=== PATIENT | male | born 1945 | race Caucasian/White ===

== ENCOUNTER 2020-03-28 13:14 | Emergency (ER) | payer MEDICARE, BC ==
[2020-03-28] MEDS ORDERED: Acetaminophen 325 MG Tab PO ONE (13:56)
--- NOTE | 2020-03-28 13:57 | EDM.PDOC ---
ED HPI GENERAL MEDICAL PROBLEM - General Chief Complaint: Respiratory Problem Stated Complaint: [facility] Time Seen by Provider: 03/28/20 13:53 Source of Information: Reports: Patient History Limitations: Reports: No Limitations - History of Present Illness INITIAL COMMENTS - FREE TEXT/NARRATIVE: 74-year-old male presents to the ED due to generally feeling very ill. Patient was diagnosed with COVID-19 illness 3 days ago. He was tested the day prior. He has a paroxysmal dry cough. Headache generalized severe myalgia particularly in his back neck and thighs. He has complete loss of all appetite. He is having on average 3 loose watery stools per day even in spite of not eating. He has absolutely no appetite. His oxygen saturations on room air are 93 to 94% in the ED. he believes his illness started last Monday or 6 days ago February 19. So far his is tested negative. He states he thinks he has had a fever for the last 6 days. He has been taking Motrin sparingly. Onset: Gradual Duration: Day(s):, Constant, Getting Worse Location: Reports: Chest (Paroxysmal), Generalized (Severe generalized myalgia with associated headache), Other (Complete anorexia for any food with persistent diarrhea usually 3 loose watery stools per day.) Quality: Reports: Ache ( nonproductive cough. Diffuse generalized myalgia particularly back neck and thighs.) Severity: Severe (8 out of 10) Improves with: Reports: None Worsens with: Reports: Movement Context: Denies: Activity, Exercise, Lifting, Sick Contact, Trauma, Other Associated Symptoms: Reports: Cough, Fever/Chills, Headaches, Loss of Appetite, Malaise, Nausea/Vomiting, Shortness of Breath, Weakness (Nausea without vomiting), Other ( generalized weakness). Denies: No Other Symptoms, Confusion, Chest Pain, cough w sputum, Diaphoresis, Rash, Seizure, Syncope Treatments MANAGER FIELD INVESTIGATIONS: Reports: Acetaminophen ( diarrhea usually 3 loose watery stools per day), NSAIDS (Motrin.) - Related Data Allergies Allergy/AdvReac Type Severity Reaction Status Date / Time No Known Allergies Allergy Verified 03/28/20 13:23 Home Meds: Home Meds dexAMETHasone [Dexamethasone] 6 mg PO BID #8 tab 03/28/20 [Rx] Past Medical History - Past Health History Medical/Surgical History: Denies Medical/Surgical History - Infectious Disease History Infectious Disease History: Reports: Chicken Pox, Novel Coronavirus Social & Family History - Tobacco Use Smoking Status *Q: Former Smoker Used Tobacco, but Quit: Yes Month/Year Tobacco Last Used: 30 years ago - Caffeine Use Caffeine Use: Reports: None - Recreational Drug Use Recreational Drug Use: No - Living Situation & Occupation Living situation: Reports: Occupation: Retired ED ROS GENERAL - Review of Systems Review Of Systems: See Below Constitutional: Reports: Fever, Chills, Malaise, Weakness, Fatigue, Decreased Appetite HEENT: Reports: Glasses Respiratory: Reports: Shortness of Breath, Cough. Denies: Wheezing, Pleuritic Chest Pain, Sputum, Hemoptysis (Dry cough) Cardiovascular: Reports: Blood Pressure Problem, Dyspnea on Exertion, Lightheadedness. Denies: Chest Pain, Claudication, Edema, Orthopnea, Palpitations Endocrine: Reports: Fatigue (Overwhelming fatigue. All he wants to do his sleep.) GI/Abdominal: Reports: Anorexia (He has not eaten anything for 3 days), Diarrhea, Nausea (Usually 3 loose watery stools per day brownish in color without blood). Denies: Vomiting : Reports: Other (Urine is dark in color.) Musculoskeletal: Reports: Joint Pain (Of his large joints hurt hips knees low back neck thigh muscles.) Skin: Reports: No Symptoms Neurological: Reports: Dizziness (This with standing.), Headache, Difficulty Walking (Weakness and dizziness.), Weakness. Denies: Confusion, Numbness, Syncope, Tingling Psychiatric: Reports: No Symptoms Hematologic/Lymphatic: Reports: No Symptoms Immunologic: Reports: No Symptoms ED EXAM, GENERAL - Physical Exam Exam: See Below Exam Limited By: No Limitations General Appearance: Alert, WD/WN, Mild Distress, Other (Appears ill. Temperature is 38.3 C heart rate 66 respiratory is 26 with O2 sats of 93 to 94% on room air BP 149/61.) Eye Exam: Bilateral Eye: Normal Inspection (No scleral icterus or blepharal pallor.) Ears: Normal TMs Throat/Mouth: Normal Inspection, Normal Oropharynx, Other Head: Atraumatic, Normocephalic (Tongue is coated and dry.) Neck: Normal Inspection, Supple, Full Range of Motion, Tender Lateral (Crepitus on lateral flexion and rotation.). No: Limited Range of Motion Respiratory/Chest: No Accessory Muscle Use, Respiratory Distress, Decreased Breath Sounds, Wheezing (Decreased breath sounds throughout all lung sams c ompatible with COPD pattern.). No: Lungs Clear, Normal Breath Sounds, Chest Non-Tender, Rales ( Occasional expiratory wheeze appreciated.), Rhonchi Cardiovascular: Regular Rate, Rhythm, No Edema, No Gallop, No Murmur (Heart sounds are very difficult to hear due to COPD.), No Rub. No: Normal Peripheral Pulses Peripheral Pulses: 1+: Posterior Tibial (L), Posterior Tibial (R), Dorsalis Pedis (L), Dorsalis Pedis (R), 2+: Carotid (L), Carotid (R) GI/Abdominal: Normal Bowel Sounds, Soft, Non-Tender, No Organomegaly, No Mass, Pelvis Stable, Other (Bowel sounds are active in all 4 quadrants.). No: Distended Back Exam: Normal Inspection, Full Range of Motion. No: CVA Tenderness (L), CVA Tenderness (R) Extremities: Normal Inspection, Normal Range of Motion, Non-Tender, No Pedal Edema, Normal Capillary Refill Neurological: Alert, Oriented, CN II-XII Intact, Normal Cognition Psychiatric: Flat Affect, Other Skin Exam: Warm, Dry, Intact (And appears ill and is very warm to palpation.), Normal Color, No Rash EKG INTERPRETATION EKG Date: 03/28/20 Time: 14:44 Rhythm: NSR Rate (Beats/Min): 69 [place]: RAD-Right [place] Deviation (141 degrees) P-Wave: Present (Borderline first-degree AV block) QRS: Other (Early R wave transition consider right ventricular hypertrophy pattern.) ST-T: Other (There is T wave flattening in V1 which is nonspecific however there is T wave inversion V2 to V6 and aVL cannot rule out anterior septal ischemia.) QT: Normal EKG Interpretation Comments: Abnormal ECG. Course - Vital Signs Last Recorded V/S: Last Vital Signs Temp 37.2 C 03/28/20 16:25 Pulse 66 03/28/20 13:19 Resp 26 H 03/28/20 13:19 BP 149/61 H 03/28/20 13:19 Pulse Ox 87 L 03/28/20 16:25 - Orders/Labs/Meds Orders: Active Orders 24 hr Category Date Time Status Chest 1V Frontal [CR] Stat Exams 03/28/20 13:54 Taken Dextrose 5%-Lactated Ringers 1,000 ml Med 03/28/20 14:00 Active IV ASDIRECTED Medication Orders Dextrose/Lactated Ringer's (Dextrose 5%-Lactated Ringers) 1,000 mls @ 500 mls/hr IV ASDIRECTED ROSITA Last Admin: 03/28/20 14:27 Dose: 500 mls/hr Documented by: HERMMIC Labs: Laboratory Tests 03/28/20 03/28/20 03/28/20 Range/Units 14:15 14:15 14:15 WBC 5.41 (4.23-9.07) K/mm3 RBC 4.04 L (4.63-6.08) M/mm3 Hgb 12.6 L (13.7-17.5) gm/dl Hct 36.8 L (40.1-51.0) % MCV 91.1 D (79.0-92.2) fl MCH 31.2 (25.7-32.2) pg MCHC 34.2 (32.2-35.5) g/dl RDW Std Deviation 44.6 H (35.1-43.9) fL Plt Count 215 (163-337) K/mm3 MPV 10.9 (9.4-12.3) fl Neut % (Auto) 81.5 H (34.0-67.9) % Lymph % (Auto) 12.0 L (21.8-53.1) % Menard % (Auto) 6.1 (5.3-12.2) % Eos % (Auto) 0 L (0.8-7.0) Baso % (Auto) 0.2 (0.1-1.2) % Neut # (Auto) 4.41 (1.78-5.38) K/mm3 Lymph # (Auto) 0.65 L (1.32-3.57) K/mm3 [place] # (Auto) 0.33 (0.30-0.82) K/mm3 Eos # (Auto) 0.00 L (0.04-0.54) K/mm3 Baso # (Auto) 0.01 (0.01-0.08) K/mm3 Manual Slide Review Abnormal smear PT 12.6 H (9.7-11.7) SECONDS INR 1.18 APTT 32 H (22-31) SECONDS D-Dimer, Quantitative (0.19-0.50) mg/L Sodium 132 L D (136-145) mEq/L Potassium 3.9 (3.5-5.1) mEq/L Chloride 97 L (98-107) mEq/L Carbon Dioxide 23 (21-32) mEq/L Anion Gap 15.9 H (5-15) BUN 22 H (7-18) mg/dL Creatinine 1.3 (0.7-1.3) mg/dL Est Cr Clr Drug Dosing 49.69 mL/min Estimated GFR (MDRD) 54 (>60) mL/min BUN/Creatinine Ratio 16.9 (14-18) Glucose 126 H (83-115) mg/dL Lactic Acid (0.4-2.0) mmol/L Calcium 7.9 L (8.5-10.1) mg/dL Magnesium 1.9 (1.8-2.4) mg/dl Ferritin (26-388) ng/ml Total Bilirubin 0.4 (0.2-1.0) mg/dL AST 28 (15-37) U/L ALT 41 (16-63) U/L Alkaline Phosphatase 59 (46-116) U/L Lactate Dehydrogenase 235 H (85-227) U/L CK-MB (CK-2) 0.9 (0-3.6) ng/ml Troponin I < 0.017 (0.00-0.056) ng/mL C-Reactive Protein 12.4 H* (<1.0) mg/dL NT-Pro-B Natriuret Pep (0-125) pg/mL Total Protein 6.9 (6.4-8.2) g/dl Albumin 3.2 L (3.4-5.0) g/dl Globulin 3.7 gm/dL Albumin/Globulin Ratio 0.9 L (1-2) Ketones (0.0-0.3) mM 03/28/20 03/28/20 03/28/20 Range/Units 14:15 14:15 14:15 WBC (4.23-9.07) K/mm3 RBC (4.63-6.08) M/mm3 Hgb (13.7-17.5) gm/dl Hct (40.1-51.0) % MCV (79.0-92.2) fl MCH (25.7-32.2) pg MCHC (32.2-35.5) g/dl RDW Std Deviation (35.1-43.9) fL Plt Count (163-337) K/mm3 MPV (9.4-12.3) fl Neut % (Auto) (34.0-67.9) % Lymph % (Auto) (21.8-53.1) % [place]ard % (Auto) (5.3-12.2) % Eos % (Auto) (0.8-7.0) Baso % (Auto) (0.1-1.2) % Neut # (Auto) (1.78-5.38) K/mm3 Lymph # (Auto) (1.32-3.57) K/mm3 [place] # (Auto) (0.30-0.82) K/mm3 Eos # (Auto) (0.04-0.54) K/mm3 Baso # (Auto) (0.01-0.08) K/mm3 Manual Slide Review PT (9.7-11.7) SECONDS INR APTT (22-31) SECONDS D-Dimer, Quantitative 0.80 H (0.19-0.50) mg/L Sodium (136-145) mEq/L Potassium (3.5-5.1) mEq/L Chloride (98-107) mEq/L Carbon Dioxide (21-32) mEq/L Anion Gap (5-15) BUN (7-18) mg/dL Creatinine (0.7-1.3) mg/dL Est Cr Clr Drug Dosing mL/min Estimated GFR (MDRD) (>60) mL/min BUN/Creatinine Ratio (14-18) Glucose (83-115) mg/dL Lactic Acid (0.4-2.0) mmol/L Calcium (8.5-10.1) mg/dL Magnesium (1.8-2.4) mg/dl Ferritin 2726 H (26-388) ng/ml Total Bilirubin (0.2-1.0) mg/dL AST (15-37) U/L ALT (16-63) U/L Alkaline Phosphatase (46-116) U/L Lactate Dehydrogenase (85-227) U/L CK-MB (CK-2) (0-3.6) ng/ml Troponin I (0.00-0.056) ng/mL C-Reactive Protein (<1.0) mg/dL NT-Pro-B Natriuret Pep 289 H (0-125) pg/mL Total Protein (6.4-8.2) g/dl Albumin (3.4-5.0) g/dl Globulin gm/dL Albumin/Globulin Ratio (1-2) Ketones (0.0-0.3) mM 03/28/20 03/28/20 Range/Units 14:15 14:15 WBC (4.23-9.07) K/mm3 RBC (4.63-6.08) M/mm3 Hgb (13.7-17.5) gm/dl Hct (40.1-51.0) % MCV (79.0-92.2) fl MCH (25.7-32.2) pg MCHC (32.2-35.5) g/dl RDW Std Deviation (35.1-43.9) fL Plt Count (163-337) K/mm3 MPV (9.4-12.3) fl Neut % (Auto) (34.0-67.9) % Lymph % (Auto) (21.8-53.1) % [place] % (Auto) (5.3-12.2) % Eos % (Auto) (0.8-7.0) Baso % (Auto) (0.1-1.2) % Neut # (Auto) (1.78-5.38) K/mm3 Lymph # (Auto) (1.32-3.57) K/mm3 [place] # (Auto) (0.30-0.82) K/mm3 Eos # (Auto) (0.04-0.54) K/mm3 Baso # (Auto) (0.01-0.08) K/mm3 Manual Slide Review PT (9.7-11.7) SECONDS INR APTT (22-31) SECONDS D-Dimer, Quantitative (0.19-0.50) mg/L Sodium (136-145) mEq/L Potassium (3.5-5.1) mEq/L Chloride (98-107) mEq/L Carbon Dioxide (21-32) mEq/L Anion Gap (5-15) BUN (7-18) mg/dL Creatinine (0.7-1.3) mg/dL Est Cr Clr Drug Dosing mL/min Estimated GFR (MDRD) (>60) mL/min BUN/Creatinine Ratio (14-18) Glucose (83-115) mg/dL Lactic Acid 1.4 (0.4-2.0) mmol/L Calcium (8.5-10.1) mg/dL Magnesium (1.8-2.4) mg/dl Ferritin (26-388) ng/ml Total Bilirubin (0.2-1.0) mg/dL AST (15-37) U/L ALT (16-63) U/L Alkaline Phosphatase (46-116) U/L Lactate Dehydrogenase (85-227) U/L CK-MB (CK-2) (0-3.6) ng/ml Troponin I (0.00-0.056) ng/mL C-Reactive Protein (<1.0) mg/dL NT-Pro-B Natriuret Pep (0-125) pg/mL Total Protein (6.4-8.2) g/dl Albumin (3.4-5.0) g/dl Globulin gm/dL Albumin/Globulin Ratio (1-2) Ketones 0.77 (0.0-0.3) mM Meds: Medications Generic Name Dose Route Start Last Admin Trade Name Freq PRN Reason Stop Dose Admin Dextrose/Lactated Ringer's 1,000 mls @ 500 mls/hr 03/28/20 14:00 03/28/20 14:27 Dextrose 5%-Lactated Ringers IV 500 mls/hr ASDIRECTED ROSITA Administration Discontinued Medications Generic Name Dose Route Start Last Admin Trade Name Freq PRN Reason Stop Dose Admin Acetaminophen 975 mg 03/28/20 13:56 03/28/20 14:27 Tylenol PO 03/28/20 13:57 975 mg ONETIME ONE Administration Dexamethasone 6 mg 03/28/20 16:20 03/28/20 17:08 Dexamethasone IVPUSH 03/28/20 16:21 6 mg ONETIME ONE Administration - Radiology Interpretation Free Text/Narrative:: 74-year-old male presents to the ED with known COVID-19 illness positivity dated 3 days ago. He believes he has been sick with fever chills generalized myalgias since Valentín, October 3. His so far is tested negative. He continues to have diarrhea usually 3 loose stools per day. This is in spite of not eating anything much for the last 3 days. He has generally weak. He is still continuing to run a fever of 38.3 C now. Cough is nonproductive. Overwhelming fatigue. O2 sats are 93 to 94% on room air. Clinically has COPD. Plan he will be given Tylenol 9 7 5 mg p.o. for fever relief. IV will be D5 normal saline at 500 mils per hour. Oxygen will be held off at this point time. COVID-19 labs to be done including serum ferritin d-dimer and LDH. 1 view chest x-ray to be done. - Re-Assessments/Exams Free Text/Narrative Re-Assessment/Exam: 03/28/20 15:18 chest x-ray done portably reveals marked cardiomegaly. There is some widening of the upper mediastinum concerning for possibility of an aortic aneurysm of the thoracic aorta. There is diffuse infiltrate in both upper and lower lobes of the left lung. There is minimal infiltrate along the medial heart border probably in the middle above the right lung. This is compatible with COVID 19 viral pneumonia. Blood pressure is currently 117/48 with a heart rate in the 90s. O2 sats are 92% on room air drift down to as low as 87% and down to 82% when he is walking to the bathroom. He is going to need home oxygen therapy. I am going to go ahead and give him a dose of dexamethasone 6 mg IV bolus. The plan will be to send him home once [facility] can set up his home oxygen requirements. I am going to place him on dexamethasone 6 mg by mouth twice daily for 4 more days in an effort to reduce inflammation in his lungs. 03/28/20 20:00: It took a while but [facility] was able to arrange for home oxygen therapy where he will remain on 2 L/min by nasal specs at all times. I suspect his condition may further deteriorate over the next 48 hours is day 8-10 are the worst days of the illness. Hopefully the dexamethasone will help resolve or reduce the inflammation caused by COVID-19. He will return if he develops further dyspnea. Advised other things that he could try and drink such as Gatorade or Powerade in an effort to improve his serum sodium levels since he is just drinking water. Hopefully the dexamethasone also stimulate his appetite. Ideally he should be seen in the clinic in 2 to 3 days time Departure - Departure Time of Disposition: 18:22 Disposition: Home, Self-Care 01 Condition: Fair Clinical Impression: COVID-19 determined by clinical diagnostic criteria, Hypoxia, Volume depletion, Viral pneumonia Diarrhea Qualifiers: Diarrhea type: unspecified type Qualified Code(s): R19.7 - Diarrhea, unspecified - Discharge Information *PRESCRIPTION DRUG MONITORING PROGRAM REVIEWED*: Not Applicable *COPY OF PRESCRIPTION DRUG MONITORING REPORT IN PATIENT REYNA: Not Applicable Prescriptions: dexAMETHasone [Dexamethasone] 6 mg PO BID #8 tab Instructions: Hypoxemia Referrals: Carolyn Romero, [employer] [Primary Care Provider] - Forms: ED Department Discharge Additional Instructions: Evaluation in the emergency room today in regards to diagnosis of COVID-19 illness 2 days ago. By history you have been ill for approximately 6 days. Of note we are finding that most people are the most ill on day 8-10 of their illness. You need to continue taking Motrin 600 mg every 6 hours to reduce the fever, body aches and headache. This will hopefully allow you to eat. Suggest picking up some Gatorade or Powerade and sipping on it all day long to replenish her fluids. Anything you want to eat you can eat. You should stay away from dairy products and no apple juice or grape juice until the diarrhea goes away. You will be started on home oxygen therapy at 2 L/min at all times. This is because your oxygen level was found to be on the low side in the emergency department today. You will be started on steroids dexamethasone. You were given 6 mg intravenously in the emergency department and you will need to take 6 mg in the tablet form with breakfast and supper for the next 4 days starting tomorrow morning. You must olive picker your medicine today as there is no drugstores open tomorrow. Suggest follow-up with your personal care physician on Monday or return to the hospital tomorrow if condition seems to be worsening instead of improving. It is very important that you keep an adequate amounts of fluids. You cannot just drink water as it dilute your serum sodium levels in your bloodstream you must take some other form of electrolyte-based fluids such as any juice except for apple juice or grape juice. Thus the Gatorade or Powerade is a suitable alternative as it has all the electrolytes that match your blood. Sepsis Event Note (ED) - Evaluation Sepsis Screening Result: No Definite Risk - Focused Exam Vital Signs: Vital Signs Temp Temp Pulse Resp BP Pulse Ox 03/28/20 16:25 37.2 C 87 L 03/28/20 14:27 38.3 C H 03/28/20 13:19 38.3 C H 66 26 H 149/61 H - My Orders Last 24 Hours: My Active Orders 03/28/20 13:54 Chest 1V Frontal [CR] Stat 03/28/20 14:00 Dextrose 5%-Lactated Ringers 1,000 ml IV ASDIRECTED - Assessment/Plan Last 24 Hours: My Active Orders 03/28/20 13:54 Chest 1V Frontal [CR] Stat 03/28/20 14:00 Dextrose 5%-Lactated Ringers 1,000 ml IV ASDIRECTED
[2020-03-28] MEDS ORDERED: Dextrose 5%-Lactated Ringers 1,000 ML IV SCH (14:00)
[2020-03-28] MEDS ORDERED: Dexamethasone 10 MG/ML SDV IVPUSH ONE (16:20)
--- NOTE | 2020-04-22 08:40 | CR ---
PROCEDURE INFORMATION: Exam: XR Chest, 1 View Exam date and time: 04/03/2020 11:09 AM Age: 89 years old Clinical indication: Condition or disease; Lung condition and disease; Pneumonia TECHNIQUE: Imaging protocol: XR of the chest Views: 1 view. COMPARISON: DX Chest 2V 03/31/2020 7:59 PM FINDINGS: Lungs: There is mild perihilar interstitial prominence consistent with volume overload or early congestive heart failure. Pleural space: There are bilateral small pleural effusions blunting the costophrenic angles. Heart/Mediastinum: The heart is enlarged. The patient is status post cardiac valvular replacement. Bones/joints: There is evidence of a previous sternotomy. IMPRESSION: There is mild perihilar interstitial prominence consistent with volume overload or early congestive heart failure. These findings have worsened since previous study. Thank you for allowing us to participate in the care of your patient. Dictated and Authenticated by: Sam Hollis MD 04/21/2020 6:09 AM Central Time ([place] & [place]) AALIYAH
== END 2020-03-28 18:50 | disposition home or self-care (01) ==
LOC: JD.ED 13:14
DX: U07.1 COVID-19 (principal); J12.89 Other viral pneumonia; R19.7 Diarrhea, unspecified; R09.02 Hypoxemia; E86.9 Volume depletion, unspecified; Z87.891 Personal history of nicotine dependence
CPT/HCPCS: 36415; 71045; 80053; 82009; 82553; 82728; 83605; 83615; 83735; 83880; 84484; 85025; 85379; 85610; 85730; 86140; 93005; 96374; 99285; A9270; J1100; J7121; 93010; 99283

== ENCOUNTER 2020-04-06 06:11 | Emergency (ER) | payer OTHER, MEDICARE, BC ==
--- NOTE | 2020-04-06 07:05 | EDM.PDOC ---
ED HPI GENERAL MEDICAL PROBLEM - General Chief Complaint: General Stated Complaint: [facility] Time Seen by Provider: 04/06/20 07:04 - History of Present Illness INITIAL COMMENTS - FREE TEXT/NARRATIVE: 74-year-old male returns to the emergency room complaining of weakness. The patient was diagnosed with Covid and was treated on the . He was given dexamethasone. He was told by the health department that he is over it however the patient has persistent weakness. Patient states his weakness started before he was diagnosed with Covid and just is not getting any better at this point. Patient denies any fevers or chills he is not really had much of a cough. He has not had any significant GI symptoms. But he has had this persistent weakness. Patient denies any chest pain or chest pressure. Patient is treated for prostate issues no hypertension diabetes or hyperlipidemia. - Related Data Allergies Allergy/AdvReac Type Severity Reaction Status Date / Time No Known Allergies Allergy Verified 03/28/20 13:23 Home Meds: Home Meds dexAMETHasone [Dexamethasone] 6 mg PO BID #8 tab 03/28/20 [Rx] Doxycycline [Vibramycin] 100 mg PO BID #14 tab 04/06/20 [Rx] Omeprazole 40 mg PO Q24H #30 capsule. 04/06/20 [Rx] Past Medical History - Past Health History Medical/Surgical History: Denies Medical/Surgical History - Infectious Disease History Infectious Disease History: Reports: Novel Coronavirus Social & Family History - Tobacco Use Tobacco Use Status *Q: Never Tobacco User - Caffeine Use Caffeine Use: Reports: None - Living Situation & Occupation Living situation: Reports: Occupation: Retired ED ROS GENERAL - Review of Systems Review Of Systems: See Below Constitutional: Reports: Weakness. Denies: No Symptoms HEENT: Reports: No Symptoms Respiratory: Reports: No Symptoms Cardiovascular: Reports: No Symptoms Endocrine: Reports: No Symptoms GI/Abdominal: Reports: No Symptoms : Reports: No Symptoms Musculoskeletal: Reports: No Symptoms Skin: Reports: No Symptoms Neurological: Reports: No Symptoms Psychiatric: Reports: No Symptoms ED EXAM, GENERAL - Physical Exam Exam: See Below Exam Limited By: No Limitations General Appearance: Alert, No Apparent Distress Head: Atraumatic, Normocephalic Neck: Normal Inspection, Supple, Non-Tender, Full Range of Motion Respiratory/Chest: No Respiratory Distress, Lungs Clear, Normal Breath Sounds Cardiovascular: Normal Peripheral Pulses, Regular Rate, Rhythm, No Edema, Systolic Murmur (Holosystolic decrescendo murmur heard best left lower sternal border) GI/Abdominal: Normal Bowel Sounds, Soft, Non-Tender Back Exam: Normal Inspection, Full Range of Motion. No: CVA Tenderness (L), CVA Tenderness (R) Extremities: Normal Inspection Neurological: Alert, Oriented, Normal Cognition #1 Interpretation EKG Date: 04/06/20 Rhythm: NSR [place]: Other (Borderline axis) P-Wave: Present QRS: Other (Normal QRS with early transition) ST-T: Other (Nonspecific ST depression leads to V4 5 and 6) QT: Normal Comparison: Change From Previous EKG (Resolved T wave abnormalities no first- degree AV block NC interval of 0.18) Course - Vital Signs Last Recorded V/S: Last Vital Signs Temp 36.2 C 04/06/20 06:15 Pulse 88 04/06/20 06:15 Resp 16 04/06/20 06:15 BP 127/62 04/06/20 06:15 Pulse Ox 98 04/06/20 06:15 - Orders/Labs/Meds Orders: Active Orders 24 hr Category Date Time Status EKG Documentation Completion [RC] STAT Care 04/06/20 07:26 Active Ang Chest [CT] Stat Exams 04/06/20 08:52 Taken Chest 1V Frontal [CR] Stat Exams 04/06/20 07:26 Taken UA RFX KAYLI AND CULT IF INDIC [URIN] Stat Lab 04/06/20 07:26 Ordered Sodium Chloride 0.9% [Normal Saline] 100 ml Med 04/06/20 09:00 Active IV ASDIRECTED Sodium Chloride 0.9% [Saline Flush] Med 04/06/20 08:55 Active 10 ml FLUSH ONETIME PRN Medication Orders Sodium Chloride (Normal Saline) 100 mls @ 75 mls/hr IV ASDIRECTED ROSITA Last Admin: 04/06/20 09:26 Dose: 75 mls/hr Documented by: DAVID Sodium Chloride (Saline Flush) 10 ml FLUSH ONETIME PRN PRN Reason: IV FLUSH Last Admin: 04/06/20 09:26 Dose: 10 ml Documented by: DAVID Labs: Laboratory Tests 04/06/20 04/06/20 04/06/20 Range/Units 06:20 06:20 06:20 WBC (4.23-9.07) K/mm3 RBC (4.63-6.08) M/mm3 Hgb (13.7-17.5) gm/dl Hct (40.1-51.0) % MCV (79.0-92.2) fl MCH (25.7-32.2) pg MCHC (32.2-35.5) g/dl RDW Std Deviation (35.1-43.9) fL Plt Count (163-337) K/mm3 MPV (9.4-12.3) fl Neut % (Auto) (34.0-67.9) % Lymph % (Auto) (21.8-53.1) % [place] % (Auto) (5.3-12.2) % Eos % (Auto) (0.8-7.0) Baso % (Auto) (0.1-1.2) % Neut # (Auto) (1.78-5.38) K/mm3 Lymph # (Auto) (1.32-3.57) K/mm3 [place]ell # (Auto) (0.30-0.82) K/mm3 Eos # (Auto) (0.04-0.54) K/mm3 Baso # (Auto) (0.01-0.08) K/mm3 Manual Slide Review PT 12.3 H (9.7-11.7) SECONDS INR 1.15 APTT 25 (22-31) SECONDS D-Dimer, Quantitative 2.30 H (0.19-0.50) mg/L Sodium 139 (136-145) mEq/L Potassium 4.3 (3.5-5.1) mEq/L Chloride 105 (98-107) mEq/L Carbon Dioxide 20 L (21-32) mEq/L Anion Gap 18.3 H (5-15) BUN 58 H D (7-18) mg/dL Creatinine 1.0 (0.7-1.3) mg/dL Est Cr Clr Drug Dosing 68.94 mL/min Estimated GFR (MDRD) > 60 (>60) mL/min BUN/Creatinine Ratio 57.0 H (14-18) Glucose 130 H (83-115) mg/dL Calcium 7.9 L (8.5-10.1) mg/dL Total Bilirubin 0.4 (0.2-1.0) mg/dL AST 15 (15-37) U/L ALT 97 H (16-63) U/L Alkaline Phosphatase 45 L (46-116) U/L Troponin I < 0.017 (0.00-0.056) ng/mL NT-Pro-B Natriuret Pep (0-125) pg/mL Total Protein 5.7 L (6.4-8.2) g/dl Albumin 2.6 L (3.4-5.0) g/dl Globulin 3.1 gm/dL Albumin/Globulin Ratio 0.8 L (1-2) 04/06/20 04/06/20 04/06/20 Range/Units 06:20 10:50 12:15 WBC 11.11 H (4.23-9.07) K/mm3 RBC 3.33 L (4.63-6.08) M/mm3 Hgb 10.2 L D 9.9 L (13.7-17.5) gm/dl Hct 31.0 L 29.9 L (40.1-51.0) % MCV 93.1 H (79.0-92.2) fl MCH 30.6 (25.7-32.2) pg MCHC 32.9 (32.2-35.5) g/dl RDW Std Deviation 43.9 (35.1-43.9) fL Plt Count 366 H D (163-337) K/mm3 MPV 10.8 (9.4-12.3) fl Neut % (Auto) 71.4 H (34.0-67.9) % Lymph % (Auto) 15.8 L (21.8-53.1) % Howell % (Auto) 10.5 (5.3-12.2) % Eos % (Auto) 1.1 (0.8-7.0) Baso % (Auto) 0.1 (0.1-1.2) % Neut # (Auto) 7.93 H (1.78-5.38) K/mm3 Lymph # (Auto) 1.76 (1.32-3.57) K/mm3 [place]ell # (Auto) 1.17 H (0.30-0.82) K/mm3 Eos # (Auto) 0.12 (0.04-0.54) K/mm3 Baso # (Auto) 0.01 (0.01-0.08) K/mm3 Manual Slide Review Abnormal smear PT (9.7-11.7) SECONDS INR APTT (22-31) SECONDS D-Dimer, Quantitative (0.19-0.50) mg/L Sodium (136-145) mEq/L Potassium (3.5-5.1) mEq/L Chloride (98-107) mEq/L Carbon Dioxide (21-32) mEq/L Anion Gap (5-15) BUN (7-18) mg/dL Creatinine (0.7-1.3) mg/dL Est Cr Clr Drug Dosing mL/min Estimated GFR (MDRD) (>60) mL/min BUN/Creatinine Ratio (14-18) Glucose (83-115) mg/dL Calcium (8.5-10.1) mg/dL Total Bilirubin (0.2-1.0) mg/dL AST (15-37) U/L ALT (16-63) U/L Alkaline Phosphatase (46-116) U/L Troponin I (0.00-0.056) ng/mL NT-Pro-B Natriuret Pep 262 H (0-125) pg/mL Total Protein (6.4-8.2) g/dl Albumin (3.4-5.0) g/dl Globulin gm/dL Albumin/Globulin Ratio (1-2) Meds: Medications Generic Name Dose Route Start Last Admin Trade Name Freq PRN Reason Stop Dose Admin Sodium Chloride 100 mls @ 75 mls/hr 04/06/20 09:00 04/06/20 09:26 Normal Saline IV 75 mls/hr ASDIRECTED ROSITA Administration Sodium Chloride 10 ml 04/06/20 08:55 04/06/20 09:26 Saline Flush FLUSH 10 ml ONETIME PRN Administration IV FLUSH Discontinued Medications Generic Name Dose Route Start Last Admin Trade Name Freq PRN Reason Stop Dose Admin Sodium Chloride 500 mls @ 999 mls/hr 04/06/20 08:06 04/06/20 08:31 Normal Saline IV 04/06/20 08:36 999 mls/hr .BOLUS ONE Administration Iopamidol 100 ml 04/06/20 08:55 04/06/20 09:26 Isovue-370 (76%) IVPUSH 04/06/20 08:56 100 ml ONETIME ONE Administration Pantoprazole Sodium 80 mg 04/06/20 10:24 04/06/20 10:50 Protonix Iv IVPUSH 04/06/20 10:25 80 mg BOLUS ONE Administration - Re-Assessments/Exams Free Text/Narrative Re-Assessment/Exam: 04/06/20 08:56 Patient's D-dimer is up from 0.8-2.3 we will check a CTA chest x-ray shows persistent infiltrate left lower lobe to me it looks better than his prior but radiology did not comment on that with his elevated D-dimer I will go and check a CTA this will also help clarify the pneumonia issue. 04/06/20 11:20 Patient had a CTA done and this did not show a PE but bilateral pulmonary opacities consistent with pneumonia either viral or developing bacterial or perhaps associated with drug toxicity and/or connective tissue disease.11 he also has a 3.6 mm right upper lobe nodule, will have him follow-up with his regular provider for follow-up on this. He has a nonobstructing kidney stone noted a adrenal adenoma 8 mm. These do not need follow-up. The patient had a BM in a bedside commode and the nurse noted that it was on the soft side and very black. She hemocculted it and it was Hemoccult positive. Patient has a slight decrease in his hemoglobin hematocrit from the third of this month. Patient is not having any GI symptoms no nausea no vomiting no abdominal pain. I again palpated his epigastric area and he continues not to have discomfort with palpation. However we will start him on Protonix. 04/06/20 11:47 Awaiting proBNP is scheduled for a cardiac echo tomorrow at 2:00 here. 04/06/20 12:03 proBNP is 262 this is actually down from the beginning of this month where it wa s 289. With his heme positive stools I would like to recheck an H&H to make sure this is not trending downward prior to discharging the patient home. 04/06/20 13:43 He has a mild drop in his hemoglobin hematocrit most likely delusional from his IV therapy. Patient will be started on omeprazole 40 mg daily. I am also can start the patient on doxycycline 100 mg twice daily with this residual inf iltrate in the patient having worsening fatigue. Departure - Departure Time of Disposition: 13:38 Disposition: Home, Self-Care 01 Clinical Impression: Elevated brain natriuretic peptide (BNP) level, Weakness, Anemia, Upper GI bleed - Discharge Information Referrals: Carolyn Romero, [facility] [Primary Care Provider] - Forms: ED Department Discharge Additional Instructions: Return to the emergency room with any questions problems or worsening symptoms. You are scheduled for an outpatient echocardiogram, this is an ultrasound of your heart, at 2:00 tomorrow come to the hospital at 1:30 to check in You have been discharged on 2 medications the first 1 is omeprazole take 1 30 to 60 minutes before your morning meal. This is to help your stomach. You have also been started on doxycycline, this is an antibiotic, take 1 twice daily for 7 days. This is for a possible developing bacterial pneumonia. Follow-up with your regular healthcare provider on Monday for a recheck you will need to have repeat blood work to make sure your hemoglobin and hematocrit is stable. Hemoglobin hematocrit is count of your red blood cells in your system. Sepsis Event Note (ED) - Evaluation Sepsis Screening Result: No Definite Risk - Focused Exam Vital Signs: Vital Signs Temp Pulse Resp BP Pulse Ox 04/06/20 06:15 36.2 C 88 16 127/62 98 - My Orders Last 24 Hours: My Active Orders 04/06/20 07:26 EKG Documentation Completion [RC] STAT Chest 1V Frontal [CR] Stat UA RFX KAYLI AND CULT IF INDIC [URIN] Stat 04/06/20 08:52 Ang Chest [CT] Stat 04/06/20 08:55 Sodium Chloride 0.9% [Saline Flush] 10 ml FLUSH ONETIME PRN 04/06/20 09:00 Sodium Chloride 0.9% [Normal Saline] 100 ml IV ASDIRECTED - Assessment/Plan Last 24 Hours: My Active Orders 04/06/20 07:26 EKG Documentation Completion [RC] STAT Chest 1V Frontal [CR] Stat UA RFX KAYLI AND CULT IF INDIC [URIN] Stat 04/06/20 08:52 Ang Chest [CT] Stat 04/06/20 08:55 Sodium Chloride 0.9% [Saline Flush] 10 ml FLUSH ONETIME PRN 04/06/20 09:00 Sodium Chloride 0.9% [Normal Saline] 100 ml IV ASDIRECTED
[2020-04-06] MEDS ORDERED: Sodium Chloride 0.9% 500 ML IV ONE (08:06)
[2020-04-06] MEDS ORDERED: Sodium Chloride 0.9% 10 ML Syringe FLUSH PRN (08:55)
[2020-04-06] MEDS ORDERED: Iopamidol 755 Mg/ML 100 ML Bottle IVPUSH ONE (08:55)
[2020-04-06] MEDS ORDERED: Sodium Chloride 0.9% 100 ML IV SCH (09:00)
[2020-04-06] MEDS ORDERED: Pantoprazole 40 MG Vial IVPUSH ONE (10:24)
== END 2020-04-06 14:40 | disposition home or self-care (01) ==
LOC: JD.ED 06:11
DX: D64.9 Anemia, unspecified (principal); K92.2 Gastrointestinal hemorrhage, unspecified; R79.89 Other specified abnormal findings of blood chemistry; Z86.19 Personal history of other infectious and parasitic diseases
CPT/HCPCS: 36415; 71045; 71275; 80053; 83880; 84484; 85014; 85018; 85025; 85379; 85610; 85730; 93005; 96374; 99285; C9113; J7030; Q9967; 93010; 99284

== ENCOUNTER 2020-04-08 10:30 | Inpatient (IN) | payer OTHER, MEDICARE, BC ==
--- NOTE | 2020-04-08 10:57 | EDM.PDOC ---
ED HPI GENERAL MEDICAL PROBLEM - General Chief Complaint: General Stated Complaint: [facility] Time Seen by Provider: 04/08/20 10:56 Source of Information: Reports: Patient History Limitations: Reports: No Limitations - History of Present Illness INITIAL COMMENTS - FREE TEXT/NARRATIVE: 74-year-old male presents to the ED per [facility]. Patient states he was diagnosed with COVID-19 illness on March 26 and I had actually seen him at that time. I had placed him on dexamethasone 8 mg twice daily for 5 days and he states that he improved with this treatment plan. He was seen through the ED on Monday of this week and started on doxycycline 100 mg twice daily by . The reason for this is unclear. Patient does not believe the medication is making him sick. He states that he got up in the morning about 3:00 and did have some fruit. Appetite has been gradually returning. He has not had a bowel movement for several days however. This morning he just feels generalized weak and lethargic. He denies any central chest pain denies any further cough. He is afebrile. He is hypotensive with a blood pressure of 88 on 48. O2 sats 98% on room air. He apparently did have an echocardiogram done yesterday as an outpatient --results are not yet available. He is mildly nauseated. Denies any significant abdominal pain. Denies any genitourinary complaints. Patient prefers to lie still with eyes closed and answers questions with little to no detail. He just generally does not feel good. Possible sepsis. Possible occult myocardial infarction to be considered in the differential diagnosis. Patient does not know what his blood pressure usually is. He is never been on antihypertensive medications. Has no known heart disease Onset: Today Onset Date: 04/08/20 (She started feeling tough this morning shortly after getting up. He had been getting gradually better recovering from COVID-19 illness diet was diagnosed on March 26.) Duration: Hour(s):, Getting Worse Location: Reports: Generalized (Generalized weakness) Quality: Reports: Other (Generalized weakness) Severity: Moderate Improves with: Reports: None Worsens with: Reports: None Context: Reports: Other. Denies: Activity, Exercise, Lifting, Sick Contact, Trauma Generalized Pain Score (Numeric/FACES): 5 - Related Data Allergies Allergy/AdvReac Type Severity Reaction Status Date / Time No Known Allergies Allergy Verified 04/08/20 10:40 Home Meds: Home Meds Doxycycline [Vibramycin] 100 mg PO BID #14 tab 04/06/20 [Rx] Omeprazole 40 mg PO Q24H #30 capsule. 04/06/20 [Rx] Alfuzosin HCl [Alfuzosin HCl ER] 10 mg PO DAILY 04/08/20 [History] Aspirin [Aspirin EC] 81 mg PO DAILY 04/08/20 [History] Finasteride [Proscar] 5 mg PO DAILY 04/08/20 [History] Simvastatin 20 mg PO DAILY 04/08/20 [History] Past Medical History - Past Health History Medical/Surgical History: Denies Medical/Surgical History Cardiovascular History: Reports: High Cholesterol Respiratory History: Reports: Sleep Apnea Gastrointestinal History: Reports: GERD Genitourinary History: Reports: BPH (Currently on alfuzosin for his prostate enlargement) - Infectious Disease History Infectious Disease History: Reports: Chicken Pox, Influenza, Measles, Mumps Social & Family History - Tobacco Use Tobacco Use Status *Q: Never Tobacco User - Caffeine Use Caffeine Use: Reports: Coffee - Recreational Drug Use Recreational Drug Use: No - Living Situation & Occupation Living situation: Reports: Occupation: Retired [employer] [employer] [facility] - Review of Systems Review Of Systems: See Below Constitutional: Reports: Malaise, Weakness, Fatigue, Decreased Appetite. Denies: Fever, Chills HEENT: Reports: Glasses Respiratory: Reports: Shortness of Breath. Denies: Wheezing, Pleuritic Chest Pain, Cough Cardiovascular: Reports: Dyspnea on Exertion (Specially the last 3 days. For the last 3 to 4 days.), Lightheadedness. Denies: Chest Pain, Blood Pressure Problem, Claudication, Orthopnea Endocrine: Reports: Fatigue GI/Abdominal: Reports: Black Stool (Reports black stools on multiple occasions on Monday, April 05. He states since then he has had no bowel movements.), Constipation (Bowel movement for the last 4 days.), Nausea. Denies: Stool Incontinence, Vomiting : Reports: No Symptoms Musculoskeletal: Reports: Other (Normalized weakness.) Skin: Reports: Pallor Neurological: Reports: Dizziness, Difficulty Walking, Weakness (Headed and feels like he is going to pass out upon standing.). Denies: Tremors, Trouble Speaking (Due to generalized weakness.) Psychiatric: Reports: No Symptoms Hematologic/Lymphatic: Reports: No Symptoms Immunologic: Reports: No Symptoms ED EXAM, GENERAL - Physical Exam Exam: See Below Exam Limited By: Other (Patient is a lethargic and prefers to lie still and barely answers any questions.) General Appearance: Lethargic, Other (Temperature is 36.3 with a heart rate of 89 and sinus respiratory is 13 with O2 sats of 99% room air. BP 107/54.) Eye Exam: Right Eye: Normal Inspection (Patient has marked), Bilateral Eye: PERRL Throat/Mouth: Normal Inspection, Normal Lips, Normal Oropharynx, Other (Tongue is white in color compared with severe anemia.) Head: Atraumatic, Normocephalic Neck: Normal Inspection, Supple, Non-Tender, Full Range of Motion. No: Carotid Bruit, Lymphadenopathy (L), Lymphadenopathy (R) Respiratory/Chest: No Respiratory Distress, Lungs Clear, Normal Breath Sounds, Chest Non-Tender. No: Respiratory Distress Cardiovascular: Regular Rate, Rhythm, No Edema, No Gallop, Systolic Murmur (He has a pansystolic ejection murmur best heard at the left lower sternal border combined with aortic stenosis as it radiates to words the right carotid artery. The murmur also radiates to the left axilla suggesting mitral insufficiency as well.). No: Normal Peripheral Pulses Peripheral Pulses: 2+: Carotid (L), Carotid (R), Posterior Tibial (L), Posterior Tibial (R), Dorsalis Pedis (L), Dorsalis Pedis (R) GI/Abdominal: Normal Bowel Sounds, Soft, Non-Tender, No Organomegaly, No Mass, Pelvis Stable, Other (Mildly obese.) Back Exam: Normal Inspection, Full Range of Motion. No: CVA Tenderness (L), CVA Tenderness (R) Extremities: Normal Inspection, Normal Range of Motion, Non-Tender, No Pedal Edema Neurological: Alert, Oriented, CN II-XII Intact, Normal Cognition. No: Normal Gait (Assessed as he is too dizzy with standing) Psychiatric: Flat Affect Skin Exam: Warm, Dry, Intact, Pallor (Marked pallor.) #1 Interpretation EKG Date: 04/08/20 Time: 11:22 Rhythm: NSR Rate (Beats/Min): 83 [place]: Normal P-Wave: Present QRS: Other (They decreased voltage limb leads. Early R wave transition consider right ventricular appear to be versus septal hypertrophy pattern.) QT: Prolonged (Currently prolonged) EKG Interpretation Comments: Abnormal ECG Course - Vital Signs Last Recorded V/S: Last Vital Signs Temp 37.0 C 04/08/20 15:50 Pulse 72 04/08/20 15:50 Resp 15 04/08/20 15:49 BP 133/54 L 04/08/20 15:49 Pulse Ox 100 04/08/20 15:50 - Orders/Labs/Meds Orders: Active Orders 24 hr Category Date Time Status EKG Documentation Completion [RC] STAT Care 04/08/20 11:04 Active Chest 1V Frontal [CR] Stat Exams 04/08/20 11:04 Taken CULTURE BLOOD [BC] Stat Lab 04/08/20 12:10 Received PACKED CELLS [RED BLOOD CELLS LP] [BBK] Stat Lab 04/08/20 11:50 Results TYPE AND SCREEN [BBK] Stat Lab 04/08/20 11:50 Results URINALYSIS W/MICROSCOPIC [UA W/MICROSCOPIC] [URIN] Stat Lab 04/08/20 11:07 Ordered Dextrose 5%-0.9% NaCl [Dextrose 5%-Normal Saline] 1,000 Med 04/08/20 11:15 Active ml IV ASDIRECTED Sodium Chloride 0.9% [Normal Saline] 1,000 ml Med 04/08/20 12:45 Active IV ASDIRECTED Blood Culture x2 Reflex Set [OM.PC] Stat Oth 04/08/20 11:07 Ordered Transfuse Red Blood Cells [COMM] Stat Oth 04/08/20 12:16 Ordered Medication Orders Dextrose/Sodium Chloride (Dextrose 5%-Normal Saline) 1,000 mls @ 999 mls/hr IV ASDIRECTED [facility] Last Admin: 04/08/20 11:15 Dose: 999 mls/hr Documented by: NESTOR Sodium Chloride (Normal Saline) 1,000 mls @ 100 mls/hr IV ASDIRECTED [facility] Last Infusion: 04/08/20 13:35 Dose: 100 mls/hr Documented by: Admin: 04/08/20 12:52 Dose: 50 mls/hr Documented by: NESTOR Sodium Chloride (Normal Saline) 1,000 mls @ 125 mls/hr IV ASDIRECTED [facility] Ondansetron HCl (Zofran) 4 mg IV Q6H PRN PRN Reason: Nausea/Vomiting Pantoprazole Sodium (Protonix Iv) 40 mg IV Q12H [facility] Labs: Laboratory Tests 04/08/20 04/08/20 04/08/20 Range/Units 11:50 11:50 11:50 WBC 11.64 H (4.23-9.07) K/mm3 RBC 1.71 L (4.63-6.08) M/mm3 Hgb 5.3 L* D (13.7-17.5) gm/dl Hct 16.5 L (40.1-51.0) % MCV 96.5 H D (79.0-92.2) fl MCH 31.0 (25.7-32.2) pg MCHC 32.1 L (32.2-35.5) g/dl RDW Std Deviation 45.7 H (35.1-43.9) fL Plt Count 210 D (163-337) K/mm3 MPV 10.8 (9.4-12.3) fl Neut % (Auto) 87.0 H (34.0-67.9) % Lymph % (Auto) 7.8 L (21.8-53.1) % [place] % (Auto) 4.5 L (5.3-12.2) % Eos % (Auto) 0.1 L (0.8-7.0) Baso % (Auto) 0.0 L (0.1-1.2) % Neut # (Auto) 10.13 H (1.78-5.38) K/mm3 Lymph # (Auto) 0.91 L (1.32-3.57) K/mm3 [place] # (Auto) 0.52 (0.30-0.82) K/mm3 Eos # (Auto) 0.01 L (0.04-0.54) K/mm3 Baso # (Auto) 0.00 L (0.01-0.08) K/mm3 Manual Slide Review Abnormal smear ESR (0-15) mm/hr PT 14.0 H (9.7-11.7) SECONDS INR 1.32 APTT 23 (22-31) SECONDS D-Dimer, Quantitative (0.19-0.50) mg/L Sodium 139 (136-145) mEq/L Potassium 4.9 (3.5-5.1) mEq/L Chloride 109 H (98-107) mEq/L Carbon Dioxide 19 L (21-32) mEq/L Anion Gap 15.9 H (5-15) BUN 38 H (7-18) mg/dL Creatinine 1.2 (0.7-1.3) mg/dL Est Cr Clr Drug Dosing 57.45 mL/min Estimated GFR (MDRD) 60 (>60) mL/min BUN/Creatinine Ratio 31.7 H (14-18) Glucose 256 H (83-115) mg/dL Hemoglobin A1c (4.50-6.20) % Lactic Acid (0.4-2.0) mmol/L Calcium 7.2 L (8.5-10.1) mg/dL Phosphorus (2.6-4.7) mg/dL Magnesium 1.8 (1.8-2.4) mg/dl Total Bilirubin 0.3 (0.2-1.0) mg/dL AST 17 (15-37) U/L ALT 58 (16-63) U/L Alkaline Phosphatase 34 L (46-116) U/L CK-MB (CK-2) 0.6 (0-3.6) ng/ml Troponin I 0.023 (0.00-0.056) ng/mL C-Reactive Protein 1.4 H* (<1.0) mg/dL NT-Pro-B Natriuret Pep (0-125) pg/mL Total Protein 4.4 L (6.4-8.2) g/dl Albumin 2.0 L (3.4-5.0) g/dl Globulin 2.4 gm/dL Albumin/Globulin Ratio 0.8 L (1-2) Ketones (0.0-0.3) mM Blood Type Gel Antibody Screen Crossmatch 04/08/20 04/08/20 04/08/20 Range/Units 11:50 11:50 11:50 WBC (4.23-9.07) K/mm3 RBC (4.63-6.08) M/mm3 Hgb (13.7-17.5) gm/dl Hct (40.1-51.0) % MCV (79.0-92.2) fl MCH (25.7-32.2) pg MCHC (32.2-35.5) g/dl RDW Std Deviation (35.1-43.9) fL Plt Count (163-337) K/mm3 MPV (9.4-12.3) fl Neut % (Auto) (34.0-67.9) % Lymph % (Auto) (21.8-53.1) % [place] % (Auto) (5.3-12.2) % Eos % (Auto) (0.8-7.0) Baso % (Auto) (0.1-1.2) % Neut # (Auto) (1.78-5.38) K/mm3 Lymph # (Auto) (1.32-3.57) K/mm3 [place] # (Auto) (0.30-0.82) K/mm3 Eos # (Auto) (0.04-0.54) K/mm3 Baso # (Auto) (0.01-0.08) K/mm3 Manual Slide Review ESR (0-15) mm/hr PT (9.7-11.7) SECONDS INR APTT (22-31) SECONDS D-Dimer, Quantitative 1.68 H (0.19-0.50) mg/L Sodium (136-145) mEq/L Potassium (3.5-5.1) mEq/L Chloride (98-107) mEq/L Carbon Dioxide (21-32) mEq/L Anion Gap (5-15) BUN (7-18) mg/dL Creatinine (0.7-1.3) mg/dL Est Cr Clr Drug Dosing mL/min Estimated GFR (MDRD) (>60) mL/min BUN/Creatinine Ratio (14-18) Glucose (83-115) mg/dL Hemoglobin A1c (4.50-6.20) % Lactic Acid (0.4-2.0) mmol/L Calcium (8.5-10.1) mg/dL Phosphorus (2.6-4.7) mg/dL Magnesium (1.8-2.4) mg/dl Total Bilirubin (0.2-1.0) mg/dL AST (15-37) U/L ALT (16-63) U/L Alkaline Phosphatase (46-116) U/L CK-MB (CK-2) (0-3.6) ng/ml Troponin I (0.00-0.056) ng/mL C-Reactive Protein (<1.0) mg/dL NT-Pro-B Natriuret Pep 166 H (0-125) pg/mL Total Protein (6.4-8.2) g/dl Albumin (3.4-5.0) g/dl Globulin gm/dL Albumin/Globulin Ratio (1-2) Ketones 0.37 (0.0-0.3) mM Blood Type Gel Antibody Screen Crossmatch 04/08/20 04/08/20 04/08/20 Range/Units 11:50 11:50 12:10 WBC (4.23-9.07) K/mm3 RBC (4.63-6.08) M/mm3 Hgb (13.7-17.5) gm/dl Hct (40.1-51.0) % MCV (79.0-92.2) fl MCH (25.7-32.2) pg MCHC (32.2-35.5) g/dl RDW Std Deviation (35.1-43.9) fL Plt Count (163-337) K/mm3 MPV (9.4-12.3) fl Neut % (Auto) (34.0-67.9) % Lymph % (Auto) (21.8-53.1) % [place] % (Auto) (5.3-12.2) % Eos % (Auto) (0.8-7.0) Baso % (Auto) (0.1-1.2) % Neut # (Auto) (1.78-5.38) K/mm3 Lymph # (Auto) (1.32-3.57) K/mm3 [place] # (Auto) (0.30-0.82) K/mm3 Eos # (Auto) (0.04-0.54) K/mm3 Baso # (Auto) (0.01-0.08) K/mm3 Manual Slide Review ESR 18 H (0-15) mm/hr PT (9.7-11.7) SECONDS INR APTT (22-31) SECONDS D-Dimer, Quantitative (0.19-0.50) mg/L Sodium (136-145) mEq/L Potassium (3.5-5.1) mEq/L Chloride (98-107) mEq/L Carbon Dioxide (21-32) mEq/L Anion Gap (5-15) BUN (7-18) mg/dL Creatinine (0.7-1.3) mg/dL Est Cr Clr Drug Dosing mL/min Estimated GFR (MDRD) (>60) mL/min BUN/Creatinine Ratio (14-18) Glucose (83-115) mg/dL Hemoglobin A1c (4.50-6.20) % Lactic Acid (0.4-2.0) mmol/L Calcium (8.5-10.1) mg/dL Phosphorus 2.8 (2.6-4.7) mg/dL Magnesium (1.8-2.4) mg/dl Total Bilirubin (0.2-1.0) mg/dL AST (15-37) U/L ALT (16-63) U/L Alkaline Phosphatase (46-116) U/L CK-MB (CK-2) (0-3.6) ng/ml Troponin I (0.00-0.056) ng/mL C-Reactive Protein (<1.0) mg/dL NT-Pro-B Natriuret Pep (0-125) pg/mL Total Protein (6.4-8.2) g/dl Albumin (3.4-5.0) g/dl Globulin gm/dL Albumin/Globulin Ratio (1-2) Ketones (0.0-0.3) mM Blood Type A POSITIVE Gel Antibody Screen Negative Crossmatch See Detail 04/08/20 04/08/20 Range/Units 12:10 14:00 WBC (4.23-9.07) K/mm3 RBC (4.63-6.08) M/mm3 Hgb (13.7-17.5) gm/dl Hct (40.1-51.0) % MCV (79.0-92.2) fl MCH (25.7-32.2) pg MCHC (32.2-35.5) g/dl RDW Std Deviation (35.1-43.9) fL Plt Count (163-337) K/mm3 MPV (9.4-12.3) fl Neut % (Auto) (34.0-67.9) % Lymph % (Auto) (21.8-53.1) % [place] % (Auto) (5.3-12.2) % Eos % (Auto) (0.8-7.0) Baso % (Auto) (0.1-1.2) % Neut # (Auto) (1.78-5.38) K/mm3 Lymph # (Auto) (1.32-3.57) K/mm3 [place] # (Auto) (0.30-0.82) K/mm3 Eos # (Auto) (0.04-0.54) K/mm3 Baso # (Auto) (0.01-0.08) K/mm3 Manual Slide Review ESR (0-15) mm/hr PT (9.7-11.7) SECONDS INR APTT (22-31) SECONDS D-Dimer, Quantitative (0.19-0.50) mg/L Sodium (136-145) mEq/L Potassium (3.5-5.1) mEq/L Chloride (98-107) mEq/L Carbon Dioxide (21-32) mEq/L Anion Gap (5-15) BUN (7-18) mg/dL Creatinine (0.7-1.3) mg/dL Est Cr Clr Drug Dosing mL/min Estimated GFR (MDRD) (>60) mL/min BUN/Creatinine Ratio (14-18) Glucose (83-115) mg/dL Hemoglobin A1c 6.40 H (4.50-6.20) % Lactic Acid 3.3 H* (0.4-2.0) mmol/L Calcium (8.5-10.1) mg/dL Phosphorus (2.6-4.7) mg/dL Magnesium (1.8-2.4) mg/dl Total Bilirubin (0.2-1.0) mg/dL AST (15-37) U/L ALT (16-63) U/L Alkaline Phosphatase (46-116) U/L CK-MB (CK-2) (0-3.6) ng/ml Troponin I (0.00-0.056) ng/mL C-Reactive Protein (<1.0) mg/dL NT-Pro-B Natriuret Pep (0-125) pg/mL Total Protein (6.4-8.2) g/dl Albumin (3.4-5.0) g/dl Globulin gm/dL Albumin/Globulin Ratio (1-2) Ketones (0.0-0.3) mM Blood Type Gel Antibody Screen Crossmatch Meds: Medications Generic Name Dose Route Start Last Admin Trade Name Freq PRN Reason Stop Dose Admin Dextrose/Sodium Chloride 1,000 mls @ 999 mls/hr 04/08/20 11:15 04/08/20 11:15 Dextrose 5%-Normal Saline IV 999 mls/hr ASDIRECTED ROSITA Administration Sodium Chloride 1,000 mls @ 100 mls/hr 04/08/20 12:45 04/08/20 13:35 Normal Saline IV 100 mls/hr ASDIRECTED [facility] Infusion Sodium Chloride 1,000 mls @ 125 mls/hr 04/08/20 14:30 Normal Saline IV ASDIRECTED ROSITA Ondansetron HCl 4 mg 04/08/20 14:18 Zofran IV Q6H PRN Nausea/Vomiting Pantoprazole Sodium 40 mg 04/08/20 21:00 Protonix Iv IV Q12H ROSITA Discontinued Medications Generic Name Dose Route Start Last Admin Trade Name Freq PRN Reason Stop Dose Admin Pantoprazole Sodium 80 mg 04/08/20 12:27 04/08/20 12:36 Protonix Iv IVPUSH 04/08/20 12:28 80 mg BOLUS ONE Administration - Radiology Interpretation Free Text/Narrative:: 74-year-old male presents to the hospital per [facility] due to generalized weakness with associated lightheadedness and dizziness and feeling like he is going to pass out when he stands up. Associated shortness of breath on minimal exertion. History suggest that he was diagnosed with COVID-19 illness on March 26 and was seen through the ED at that time. He was placed on dexamethasone 8 mg twice daily for 4 days and he did use Motrin during that timeframe for headache body aches and fever. He was feeling better with cough resolution and return of appetite over the last few days. On Monday 3 days ago he appreciated black tarry stools x3 and then subsequently he states he has not had any bowel movements. He to his knowledge he has never had an upper GI bleed in the past. On looking at him his blood pressure is low normal he is extremely pallid in color with blepharal pallor and marked pallor in the palmar creases of his hands. But history would suggest she has suffered a significant upper GI bleed with blood loss that appears to have stopped. Plan routine labs to be performed chest x-ray and ECG. - Re-Assessments/Exams Free Text/Narrative Re-Assessment/Exam: 04/08/20 12:35 White blood cell count is elevated at 11.64. There is a left shift with 87% neutrophils on the auto differential. Hemoglobin is low at 5.3 with hematocrit of 16.5. MCV is 96.5. Platelet count 210,000. PT is 14.0 with an INR of 1.32 and a PTT of 23. Chest X-ray done portably reveals an elevated left hemidiaphragm. There appears to be some mild left lower lobe scarring. Mild cardiomegaly per portable technique. No pulmonary infiltrates identified. There is some prominence of the left pulmonary artery however. Patient will be crossmatched for 5 units of packed cells. Consent for blood transfusion to be obtained. He has no contraindications to receiving blood. It appears he has suffered an upper GI bleed from the combination of Motrin and dexamethasone use to treat his Covid 19 illness which was diagnosed on March 26. 04/08/20 12:58 ESR is 18. Sodium is 139 with a potassium of 4.9. Chloride 109 with a bicarb of 19. Anion gap is 15.9. BUN is 38 with a creatinine of 1.2. The elevated BUN suggests upper GI bleed. GFR is greater than 60. Glucose is elevated at 256. Calcium is 7.2 magnesium 1.8 liver function normal CK-MB fraction 0.6 troponin I less than 0.023. C-reactive protein is 1.4 BNP is 166. Total protein 4.4 with an albumin fraction of 2.0. Serum ketones are elevated at 0.37. 04/08/20 13:34 Serum lactic acid returned elevated at 3.3. He will be repeated at 1400 hrs. today. Patient is not known to be diabetic but but has a markedly elevated blood sugar today. A glycosylated protein was ordered. Next liter of fluid will be normal saline at 100 mils per hour. He is 127/53. O2 sats remained 100% on room air. 04/08/20 13:42 I have discussed the case with Dr. Omar Rush hospitalist on-call and he will see the patient in the ED. We will also speak to on-call surgeon Dr. Boris Damico about the possible need of this patient requiring an upper GI endoscopy. 04/08/20 14:29: Second lactic acid evaluation was 2.4 down from 3.3. Since glycosylated protein is 6.4 indicating he is not a diabetic that the initial elevated blood sugar was a stress response. Patient will be admitted to the [facility] surgery floor as soon as the bed becomes available Departure - Departure Time of Disposition: 15:45 Disposition: Admitted As Inpatient 68 Condition: Serious Clinical Impression: Upper gastrointestinal hemorrhage due to gastritis, Hypotension due to blood loss Anemia Qualifiers: Anemia type: other cause Other causes of anemia: acute posthemorrhagic Qualified Code(s): D62 - Acute posthemorrhagic anemia - Discharge Information Sepsis Event Note (ED) - Evaluation Sepsis Screening Result: No Definite Risk - Focused Exam Vital Signs: Vital Signs Temp Temp Pulse Resp BP Pulse Ox 04/08/20 13:50 36.3 C 91 113/57 L 04/08/20 13:35 36.6 C 86 119/40 L 04/08/20 13:33 36.4 C 86 126/50 L 04/08/20 13:25 36.2 C 93 116/51 L 04/08/20 13:15 36.3 C 88 16 111/62 04/08/20 10:42 36.3 C 89 13 107/54 L 99 - My Orders Last 24 Hours: My Active Orders 04/08/20 11:04 EKG Documentation Completion [RC] STAT Chest 1V Frontal [CR] Stat 04/08/20 11:07 URINALYSIS W/MICROSCOPIC [UA W/MICROSCOPIC] [URIN] Stat Blood Culture x2 Reflex Set [OM.PC] Stat 04/08/20 11:15 Dextrose 5%-0.9% NaCl [Dextrose 5%-Normal Saline] 1,000 ml IV ASDIRECTED 04/08/20 11:50 PACKED CELLS [RED BLOOD CELLS LP] [BBK] Stat TYPE AND SCREEN [BBK] Stat 04/08/20 12:10 CULTURE BLOOD [BC] Stat 04/08/20 12:16 Transfuse Red Blood Cells [COMM] Stat 04/08/20 12:45 Sodium Chloride 0.9% [Normal Saline] 1,000 ml IV ASDIRECTED - Assessment/Plan Last 24 Hours: My Active Orders 04/08/20 11:04 EKG Documentation Completion [RC] STAT Chest 1V Frontal [CR] Stat 04/08/20 11:07 URINALYSIS W/MICROSCOPIC [UA W/MICROSCOPIC] [URIN] Stat Blood Culture x2 Reflex Set [OM.PC] Stat 04/08/20 11:15 Dextrose 5%-0.9% NaCl [Dextrose 5%-Normal Saline] 1,000 ml IV ASDIRECTED 04/08/20 11:50 PACKED CELLS [RED BLOOD CELLS LP] [BBK] Stat TYPE AND SCREEN [BBK] Stat 04/08/20 12:10 CULTURE BLOOD [BC] Stat 04/08/20 12:16 Transfuse Red Blood Cells [COMM] Stat 04/08/20 12:45 Sodium Chloride 0.9% [Normal Saline] 1,000 ml IV ASDIRECTED
[2020-04-08] MEDS ORDERED: Dextrose 5%-0.9% NaCl 1,000 ML IV SCH (11:15)
[2020-04-08] MEDS ORDERED: Pantoprazole 40 MG Vial IVPUSH ONE (12:27)
[2020-04-08] MEDS ORDERED: Sodium Chloride 0.9% 1,000 ML IV SCH (12:45)
[2020-04-08] MEDS ORDERED: Ondansetron 4 MG/2 ML SDV IV PRN (14:18)
--- NOTE | 2020-04-08 14:43 | PCM.HP.2 ---
H&P History of Present Illness - General Date of Service: 04/08/20 Admit Problem/Dx: Admission Diagnosis/Problem Admission Diagnosis/Problem GI bleed requiring more than 4 units of blood in 24 hours, ICU, or surgery, profound anemia Source of Information: Patient History Limitations: Reports: No Limitations - History of Present Illness Initial Comments - Free Text/Narative: The patient is a 74-year-old gentleman who has presented to the emergency department primarily out of concern for weakness and fatigue. Patient says that he has been dizzy and lightheaded as well. He also has been somewhat short of breath. The patient was previously evaluated his ago and had been diagnosed with COVID-19. The patient had not been admitted directly to the hospital. The patient at that time had a normal hemoglobin. The patient while in the [facility] department was noted to have a hemoglobin of 5.3 g/dL. The patient later admitted to 2 days ago having melanotic stools at least 3 times. He also admits to have been taking Motrin along with dexamethasone. The patient also has been taking medication for his dyslipidemia, GERD and prostate issues. The patient denies any specific aggravating or relieving factors although he says that he fe els somewhat tired currently. The patient had been in his usual state of health up until his recent Covid diagnosis. The patient reports that he had [facility]. Onset of Symptoms: Reports: Gradual Duration of Symptoms: Reports: Day(s): Quality: Reports: Other (Feeling cold) Severity: Moderate Improves with: Reports: Rest Worsens with: Reports: None Context: Reports: Other (Previous COVID-19 infection) Associated Symptoms: Reports: Nausea/Vomiting Generalized Pain Score (Numeric/FACES): 5 - Related Data Allergies/Adverse Reactions: Allergies Allergy/AdvReac Type Severity Reaction Status Date / Time No Known Allergies Allergy Verified 04/08/20 10:40 Home Medications: Home Meds Doxycycline [Vibramycin] 100 mg PO BID #14 tab 04/06/20 [Rx] Omeprazole 40 mg PO Q24H #30 04/06/20 [Rx] Alfuzosin HCl [Alfuzosin HCl ER] 10 mg PO DAILY 04/08/20 [History] Aspirin [Aspirin EC] 81 mg PO DAILY 04/08/20 [History] Finasteride [Proscar] 5 mg PO DAILY 04/08/20 [History] Simvastatin 20 mg PO DAILY 04/08/20 [History] Past Medical History - Past Health History Medical/Surgical History: Denies Medical/Surgical History Cardiovascular History: Reports: High Cholesterol Respiratory History: Reports: Sleep Apnea Gastrointestinal History: Reports: GERD Genitourinary History: Reports: BPH (Currently on alfuzosin for his prostate enlargement) Musculoskeletal History: Reports: 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) Neurological History: Reports: None Psychiatric History: Reports: None Endocrine/Metabolic History: Reports: None Hematologic History: Reports: None Immunologic History: Reports: None - Infectious Disease History Infectious Disease History: Reports: Chicken Pox, Influenza, Measles, Mumps Social & Family History - Tobacco Use Tobacco Use Status *Q: Never Tobacco User - Caffeine Use Caffeine Use: Reports: Coffee - Recreational Drug Use Recreational Drug Use: No - Living Situation & Occupation Living situation: Reports: Occupation: Retired H&P Review of Systems - Review of Systems: Review Of Systems: See Below General: Reports: Malaise, Weakness HEENT: Reports: No Symptoms Pulmonary: Reports: Shortness of Breath Cardiovascular: Reports: No Symptoms Gastrointestinal: Reports: Black Stool Genitourinary: Reports: No Symptoms Musculoskeletal: Reports: No Symptoms Skin: Reports: No Symptoms Psychiatric: Reports: No Symptoms Neurological: Reports: No Symptoms Hematologic/Lymphatic: Reports: No Symptoms Immunologic: Reports: No Symptoms Exam - Exam Exam: See Below - Vital Signs Vital Signs: Last Vital Signs Temp 36.3 C 04/08/20 13:50 Pulse 91 04/08/20 13:50 Resp 16 04/08/20 13:15 BP 113/57 L 04/08/20 13:50 Pulse Ox 99 04/08/20 10:42 Weight: 124.738 kg - Exam Quality Assessment: Supplemental Oxygen General: Alert, Oriented, Mild Distress HEENT: EACs Clear, Hearing Intact, Nares Patent. No: Conjunctiva Clear (Very pale), Mucosa Moist & [place] (Pale) Neck: Supple, Trachea Midline Lungs: Clear to Auscultation, Normal Respiratory Effort Cardiovascular: Regular Rate, Regular Rhythm GI/Abdominal Exam: Soft, Non-Tender, No Distention. No: Normal Bowel Sounds (Hyperactive) (Male) Exam: Deferred Rectal (Males) Exam: Deferred Back Exam: Normal Inspection, Full Range of Motion Extremities: Normal Inspection, No Pedal Edema Skin: Warm, Dry, Intact Neurological: Cranial Nerves Intact Neuro Extensive - Mental Status: Alert, Oriented x3 Psychiatric: Alert, Normal Affect, Normal Mood - Patient Data Lab Results Last 24 hrs: Laboratory Results - last 24 hr 04/08/20 04/08/20 04/08/20 Range/Units 11:50 11:50 11:50 WBC 11.64 H (4.23-9.07) K/mm3 RBC 1.71 L (4.63-6.08) M/mm3 Hgb 5.3 L* D (13.7-17.5) gm/dl Hct 16.5 L (40.1-51.0) % MCV 96.5 H D (79.0-92.2) fl MCH 31.0 (25.7-32.2) pg MCHC 32.1 L (32.2-35.5) g/dl RDW Std Deviation 45.7 H (35.1-43.9) fL Plt Count 210 D (163-337) K/mm3 MPV 10.8 (9.4-12.3) fl Neut % (Auto) 87.0 H (34.0-67.9) % Lymph % (Auto) 7.8 L (21.8-53.1) % [place] % (Auto) 4.5 L (5.3-12.2) % Eos % (Auto) 0.1 L (0.8-7.0) Baso % (Auto) 0.0 L (0.1-1.2) % Neut # (Auto) 10.13 H (1.78-5.38) K/mm3 Lymph # (Auto) 0.91 L (1.32-3.57) K/mm3 [place] # (Auto) 0.52 (0.30-0.82) K/mm3 Eos # (Auto) 0.01 L (0.04-0.54) K/mm3 Baso # (Auto) 0.00 L (0.01-0.08) K/mm3 Manual Slide Review Abnormal smear ESR (0-15) mm/hr PT 14.0 H (9.7-11.7) SECONDS INR 1.32 APTT 23 (22-31) SECONDS Sodium 139 (136-145) mEq/L Potassium 4.9 (3.5-5.1) mEq/L Chloride 109 H (98-107) mEq/L Carbon Dioxide 19 L (21-32) mEq/L Anion Gap 15.9 H (5-15) BUN 38 H (7-18) mg/dL Creatinine 1.2 (0.7-1.3) mg/dL Est Cr Clr Drug Dosing 57.45 mL/min Estimated GFR (MDRD) 60 (>60) mL/min BUN/Creatinine Ratio 31.7 H (14-18) Glucose 256 H (83-115) mg/dL Lactic Acid (0.4-2.0) mmol/L Calcium 7.2 L (8.5-10.1) mg/dL Magnesium 1.8 (1.8-2.4) mg/dl Total Bilirubin 0.3 (0.2-1.0) mg/dL AST 17 (15-37) U/L ALT 58 (16-63) U/L Alkaline Phosphatase 34 L (46-116) U/L CK-MB (CK-2) 0.6 (0-3.6) ng/ml Troponin I 0.023 (0.00-0.056) ng/mL C-Reactive Protein 1.4 H* (<1.0) mg/dL NT-Pro-B Natriuret Pep (0-125) pg/mL Total Protein 4.4 L (6.4-8.2) g/dl Albumin 2.0 L (3.4-5.0) g/dl Globulin 2.4 gm/dL Albumin/Globulin Ratio 0.8 L (1-2) Ketones (0.0-0.3) mM Blood Type Gel Antibody Screen Crossmatch 04/08/20 04/08/20 04/08/20 Range/Units 11:50 11:50 11:50 WBC (4.23-9.07) K/mm3 RBC (4.63-6.08) M/mm3 Hgb (13.7-17.5) gm/dl Hct (40.1-51.0) % MCV (79.0-92.2) fl MCH (25.7-32.2) pg MCHC (32.2-35.5) g/dl RDW Std Deviation (35.1-43.9) fL Plt Count (163-337) K/mm3 MPV (9.4-12.3) fl Neut % (Auto) (34.0-67.9) % Lymph % (Auto) (21.8-53.1) % [place] % (Auto) (5.3-12.2) % Eos % (Auto) (0.8-7.0) Baso % (Auto) (0.1-1.2) % Neut # (Auto) (1.78-5.38) K/mm3 Lymph # (Auto) (1.32-3.57) K/mm3 [place] # (Auto) (0.30-0.82) K/mm3 Eos # (Auto) (0.04-0.54) K/mm3 Baso # (Auto) (0.01-0.08) K/mm3 Manual Slide Review ESR (0-15) mm/hr PT (9.7-11.7) SECONDS INR APTT (22-31) SECONDS Sodium (136-145) mEq/L Potassium (3.5-5.1) mEq/L Chloride (98-107) mEq/L Carbon Dioxide (21-32) mEq/L Anion Gap (5-15) BUN (7-18) mg/dL Creatinine (0.7-1.3) mg/dL Est Cr Clr Drug Dosing mL/min Estimated GFR (MDRD) (>60) mL/min BUN/Creatinine Ratio (14-18) Glucose (83-115) mg/dL Lactic Acid (0.4-2.0) mmol/L Calcium (8.5-10.1) mg/dL Magnesium (1.8-2.4) mg/dl Total Bilirubin (0.2-1.0) mg/dL AST (15-37) U/L ALT (16-63) U/L Alkaline Phosphatase (46-116) U/L CK-MB (CK-2) (0-3.6) ng/ml Troponin I (0.00-0.056) ng/mL C-Reactive Protein (<1.0) mg/dL NT-Pro-B Natriuret Pep 166 H (0-125) pg/mL Total Protein (6.4-8.2) g/dl Albumin (3.4-5.0) g/dl Globulin gm/dL Albumin/Globulin Ratio (1-2) Ketones 0.37 (0.0-0.3) mM Blood Type A POSITIVE Gel Antibody Screen Negative Crossmatch See Detail 04/08/20 04/08/20 Range/Units 12:10 12:10 WBC (4.23-9.07) K/mm3 RBC (4.63-6.08) M/mm3 Hgb (13.7-17.5) gm/dl Hct (40.1-51.0) % MCV (79.0-92.2) fl MCH (25.7-32.2) pg MCHC (32.2-35.5) g/dl RDW Std Deviation (35.1-43.9) fL Plt Count (163-337) K/mm3 MPV (9.4-12.3) fl Neut % (Auto) (34.0-67.9) % Lymph % (Auto) (21.8-53.1) % [place] % (Auto) (5.3-12.2) % Eos % (Auto) (0.8-7.0) Baso % (Auto) (0.1-1.2) % Neut # (Auto) (1.78-5.38) K/mm3 Lymph # (Auto) (1.32-3.57) K/mm3 [place] # (Auto) (0.30-0.82) K/mm3 Eos # (Auto) (0.04-0.54) K/mm3 Baso # (Auto) (0.01-0.08) K/mm3 Manual Slide Review ESR 18 H (0-15) mm/hr PT (9.7-11.7) SECONDS INR APTT (22-31) SECONDS Sodium (136-145) mEq/L Potassium (3.5-5.1) mEq/L Chloride (98-107) mEq/L Carbon Dioxide (21-32) mEq/L Anion Gap (5-15) BUN (7-18) mg/dL Creatinine (0.7-1.3) mg/dL Est Cr Clr Drug Dosing mL/min Estimated GFR (MDRD) (>60) mL/min BUN/Creatinine Ratio (14-18) Glucose (83-115) mg/dL Lactic Acid 3.3 H* (0.4-2.0) mmol/L Calcium (8.5-10.1) mg/dL Magnesium (1.8-2.4) mg/dl Total Bilirubin (0.2-1.0) mg/dL AST (15-37) U/L ALT (16-63) U/L Alkaline Phosphatase (46-116) U/L CK-MB (CK-2) (0-3.6) ng/ml Troponin I (0.00-0.056) ng/mL C-Reactive Protein (<1.0) mg/dL NT-Pro-B Natriuret Pep (0-125) pg/mL Total Protein (6.4-8.2) g/dl Albumin (3.4-5.0) g/dl Globulin gm/dL Albumin/Globulin Ratio (1-2) Ketones (0.0-0.3) mM Blood Type Gel Antibody Screen Crossmatch Result Diagrams: 04/08/20 11:50 04/08/20 11:50 Sepsis Event Note - Evaluation Sepsis Screening Result: No Definite Risk - Focused Exam Vital Signs: Vital Signs Temp Temp Pulse Resp BP Pulse Ox 04/08/20 13:50 36.3 C 91 113/57 L 04/08/20 13:35 36.6 C 86 119/40 L 04/08/20 13:33 36.4 C 86 126/50 L 04/08/20 13:25 36.2 C 93 116/51 L 04/08/20 13:15 36.3 C 88 16 111/62 04/08/20 10:42 36.3 C 89 13 107/54 L 99 *Q Meaningful Use (ADM) - VTE *Q VTE Mechanical Contraindications *Q: At Risk for Falls VTE Pharmacological Contraindications *Q: Active Hemorrhage - Problem List (1) Upper GI bleed SNOMED Code(s): 74888777 ICD Code: K92.2 - GASTROINTESTINAL HEMORRHAGE, UNSPECIFIED Status: Acute Priority: High Current Visit: Yes (2) Anemia SNOMED Code(s): 613827468 ICD Code: D64.9 - ANEMIA, UNSPECIFIED Status: Acute Priority: High Current Visit: Yes Qualifiers: Anemia type: other cause Other causes of anemia: acute posthemorrhagic Qualified Code(s): D62 - Acute posthemorrhagic anemia Problem List Initiated/Reviewed/Updated: Yes Orders Last 24hrs: Active Orders 24 hr Category Date Time Status Patient Status [ADT] Routine ADT 04/08/20 14:18 Ordered Antiembolic Devices [RC] PER UNIT ROUTINE Care 04/08/20 14:26 Ordered Cardiac Monitoring [RC] CONTINUOUS Care 04/08/20 14:25 Ordered EKG Documentation Completion [RC] STAT Care 04/08/20 11:04 Active Notify Provider Consults [RC] ASDIRECTED Care 04/08/20 14:28 Ordered Oxygen Therapy [RC] PRN Care 04/08/20 14:18 Ordered Up With Assistance [RC] ASDIRECTED Care 04/08/20 14:18 Ordered VTE/DVT Education [RC] PER UNIT ROUTINE Care 04/08/20 14:18 Ordered Vital Signs [RC] Q4H Care 04/08/20 14:18 Ordered Consult to Physician [CONS] Routine Cons 04/08/20 14:18 Ordered Nothing per Oral Now Diet [DIET] Diet 04/08/20 Dinner Ordered Chest 1V Frontal [CR] Stat Exams 04/08/20 11:04 Taken CBC WITH AUTO DIFF [HEME] AM Lab 04/09/20 05:11 Ordered COMPREHENSIVE METABOLIC PN,CMP [CHEM] AM Lab 04/09/20 05:11 Ordered CULTURE BLOOD [BC] Stat Lab 04/08/20 12:10 Received DD [D-DIMER QUANTITATIVE] [COAG] Stat Lab 04/08/20 11:50 Received GLYCOSYLATED HEMOGLOBIN,HGBA1C [CHEM] Stat Lab 04/08/20 14:00 Received LACTIC ACID [CHEM] Stat Lab 04/08/20 14:00 Ordered PACKED CELLS [RED BLOOD CELLS LP] [BBK] Stat Lab 04/08/20 11:50 Results PHOSPHORUS [CHEM] Routine Lab 04/08/20 14:18 Ordered TYPE AND SCREEN [BBK] Stat Lab 04/08/20 11:50 Results URINALYSIS W/MICROSCOPIC [UA W/MICROSCOPIC] [URIN] Stat Lab 04/08/20 11:07 Ordered Dextrose 5%-0.9% NaCl [Dextrose 5%-Normal Saline] 1,000 Med 04/08/20 11:15 Active ml IV ASDIRECTED Ondansetron [Zofran] Med 04/08/20 14:18 Ordered 4 mg IV Q6H PRN Pantoprazole [ProTONIX IV] Med 04/08/20 21:00 Ordered 40 mg IV Q12HR Sodium Chloride 0.9% @ 125 MLS/HR (1000ml) Med 04/08/20 14:30 Ordered Sodium Chloride 0.9% [Normal Saline] 1,000 ml IV ASDIRECTED Sodium Chloride 0.9% [Normal Saline] 1,000 ml Med 04/08/20 12:45 Active IV ASDIRECTED Antiembolic Hose [OM.PC] Per Unit Routine Ot 04/08/20 14:26 Ordered Blood Culture x2 Reflex Set [OM.PC] Stat Ot 04/08/20 11:07 Ordered Transfuse Red Blood Cells [COMM] Stat Ot 04/08/20 12:16 Ordered VTE Mechanical Contraindications [AST] Per Unit Routine Ot 04/08/20 14:18 Ordered VTE Pharmacological Contraindications [AST] Per Unit Ot 04/08/20 14:18 Ordered Routine Resuscitation Status Routine Resus Stat 04/08/20 14:18 Ordered Medication Orders Dextrose/Sodium Chloride (Dextrose 5%-Normal Saline) 1,000 mls @ 999 mls/hr IV ASDIRECTED [facility] Last Admin: 04/08/20 11:15 Dose: 999 mls/hr Documented by: NESTOR Sodium Chloride (Normal Saline) 1,000 mls @ 100 mls/hr IV ASDIRECTED [facility] Last Infusion: 04/08/20 13:35 Dose: 100 mls/hr Documented by: Admin: 04/08/20 12:52 Dose: 50 mls/hr Documented by: NESTOR Sodium Chloride (Normal Saline) 1,000 mls @ 125 mls/hr IV ASDIRECTED [facility] Ondansetron HCl (Zofran) 4 mg IV Q6H PRN PRN Reason: Nausea/Vomiting Pantoprazole Sodium (Protonix Iv) 40 mg IV Q12HR [facility] Assessment/Plan Comment:: The patient is a 74-year-old gentleman who had been admitted to acute inpatient hospitalization with a diagnosis of upper GI bleed which is resulted in profound anemia. 5 units of packed red blood cells were ordered from the emergency depa rtment. I have consulted with Dr. Damico general surgeon who had reported he will do an endoscopy tomorrow. It is likely that the patient's upper GI bleeding is from the result of NSAIDs and dexamethasone for his previous COVID- 19 treatment. I have ordered repeat laboratories for tomorrow. The patient will be kept n.p.o. except for ice chips. Physical therapy and occupational therapy has also been ordered for the patient to help with ADLs and discharge planning. The patient will be kept on oxygen as necessary to keep his saturation around 90%. Anticipate discharge in 3 to 4 days. - Mortality Measure Prognosis:: Poor
[2020-04-08 14:52] LABS: HEMOGLOBIN A1C 6.4 % (4.50-6.20)
[2020-04-08] MEDS: Furosemide 20 MG/2 ML VIAL IVPUSH PRN ×2 (18:44→22:00)
[2020-04-08] MEDS: Pantoprazole 40 MG Vial IV SCH (21:40)
[2020-04-08] MEDS ORDERED: Sodium Chloride 0.9% 250 ML ONE (21:59)
[2020-04-09] MEDS ORDERED: Sodium Chloride 0.9% 250 ML ONE (02:02)
[2020-04-09] MEDS: Sodium Chloride 0.9% 1,000 ML IV SCH ×2 (06:19→15:49)
--- NOTE | 2020-04-09 07:32 | PCM.PN ---
- General Info Date of Service: 04/09/20 Admission Dx/Problem (Free Text): Admission Diagnosis/Problem Admission Diagnosis/Problem GI bleed requiring more than 4 units of blood in 24 hours, ICU, or surgery, profound anemia Subjective Update: The patient is a 74-year-old gentleman who was admitted yesterday secondary to profound anemia from upper GI bleed. The patient has denied any new signs of bleeding. The patient had 5 units of packed red blood cells and tolerated these well. The patient says that he has been having severe pain upon urination and the Lasix was stopped. The patient today says that he feels much better. He is able to breathe. The patient has denied any pain. Patient is still n.p.o. for possible endoscopy later today. Functional Status: Reports: Pain Controlled, Tolerating Diet - Review of Systems General: Reports: Weakness HEENT: Reports: No Symptoms Pulmonary: Reports: No Symptoms Cardiovascular: Reports: No Symptoms Gastrointestinal: Reports: No Symptoms Genitourinary: Reports: Dysuria, Burning Musculoskeletal: Reports: No Symptoms Skin: Reports: No Symptoms Neurological: Reports: No Symptoms Psychiatric: Reports: No Symptoms - Patient Data Vitals - Most Recent: Last Vital Signs Temp 36.6 C 04/09/20 06:13 Pulse 64 04/09/20 06:13 Resp 18 04/09/20 06:13 BP 122/53 L 04/09/20 06:13 Pulse Ox 97 04/09/20 06:13 Weight - Most Recent: 113.443 kg I&O - Last 24 Hours: Intake & Output 04/08/20 04/09/20 04/09/20 22:59 06:59 14:59 Intake Total 336 50 Output Total 100 2800 Balance 236 -2750 Lab Results Last 24 Hours: Laboratory Results - last 24 hr 04/08/20 04/08/20 04/08/20 Range/Units 11:50 11:50 11:50 WBC 11.64 H (4.23-9.07) K/mm3 RBC 1.71 L (4.63-6.08) M/mm3 Hgb 5.3 L* D (13.7-17.5) gm/dl Hct 16.5 L (40.1-51.0) % MCV 96.5 H D (79.0-92.2) fl MCH 31.0 (25.7-32.2) pg MCHC 32.1 L (32.2-35.5) g/dl RDW Std Deviation 45.7 H (35.1-43.9) fL Plt Count 210 D (163-337) K/mm3 MPV 10.8 (9.4-12.3) fl Neut % (Auto) 87.0 H (34.0-67.9) % Lymph % (Auto) 7.8 L (21.8-53.1) % [place] % (Auto) 4.5 L (5.3-12.2) % Eos % (Auto) 0.1 L (0.8-7.0) Baso % (Auto) 0.0 L (0.1-1.2) % Neut # (Auto) 10.13 H (1.78-5.38) K/mm3 Lymph # (Auto) 0.91 L (1.32-3.57) K/mm3 [place] # (Auto) 0.52 (0.30-0.82) K/mm3 Eos # (Auto) 0.01 L (0.04-0.54) K/mm3 Baso # (Auto) 0.00 L (0.01-0.08) K/mm3 Manual Slide Review Abnormal smear ESR (0-15) mm/hr PT 14.0 H (9.7-11.7) SECONDS INR 1.32 APTT 23 (22-31) SECONDS D-Dimer, Quantitative (0.19-0.50) mg/L Sodium 139 (136-145) mEq/L Potassium 4.9 (3.5-5.1) mEq/L Chloride 109 H (98-107) mEq/L Carbon Dioxide 19 L (21-32) mEq/L Anion Gap 15.9 H (5-15) BUN 38 H (7-18) mg/dL Creatinine 1.2 (0.7-1.3) mg/dL Est Cr Clr Drug Dosing 57.45 mL/min Estimated GFR (MDRD) 60 (>60) mL/min BUN/Creatinine Ratio 31.7 H (14-18) Glucose 256 H (83-115) mg/dL Hemoglobin A1c (4.50-6.20) % Lactic Acid (0.4-2.0) mmol/L Calcium 7.2 L (8.5-10.1) mg/dL Phosphorus (2.6-4.7) mg/dL Magnesium 1.8 (1.8-2.4) mg/dl Total Bilirubin 0.3 (0.2-1.0) mg/dL AST 17 (15-37) U/L ALT 58 (16-63) U/L Alkaline Phosphatase 34 L (46-116) U/L CK-MB (CK-2) 0.6 (0-3.6) ng/ml Troponin I 0.023 (0.00-0.056) ng/mL C-Reactive Protein 1.4 H* (<1.0) mg/dL NT-Pro-B Natriuret Pep (0-125) pg/mL Total Protein 4.4 L (6.4-8.2) g/dl Albumin 2.0 L (3.4-5.0) g/dl Globulin 2.4 gm/dL Albumin/Globulin Ratio 0.8 L (1-2) Urine Color (Yellow) Urine Appearance (Clear) Urine pH (5.0-8.0) Ur Specific [place] (1.005-1.030) Urine Protein (Negative) Urine Glucose (UA) (Negative) Urine Ketones (Negative) Urine Occult Blood (Negative) Urine Nitrite (Negative) Urine Bilirubin (Negative) Urine Urobilinogen (0.2-1.0) Ur Leukocyte Esterase (Negative) Urine RBC (0-5) /hpf Urine WBC (0-5) /hpf Ur Squamous Epith Cells (0-5) /hpf Urine Bacteria (FEW) /hpf Urine Mucus (FEW) /hpf Ketones (0.0-0.3) mM Blood Type Gel Antibody Screen Crossmatch 04/08/20 04/08/20 04/08/20 Range/Units 11:50 11:50 11:50 WBC (4.23-9.07) K/mm3 RBC (4.63-6.08) M/mm3 Hgb (13.7-17.5) gm/dl Hct (40.1-51.0) % MCV (79.0-92.2) fl MCH (25.7-32.2) pg MCHC (32.2-35.5) g/dl RDW Std Deviation (35.1-43.9) fL Plt Count (163-337) K/mm3 MPV (9.4-12.3) fl Neut % (Auto) (34.0-67.9) % Lymph % (Auto) (21.8-53.1) % [place] % (Auto) (5.3-12.2) % Eos % (Auto) (0.8-7.0) Baso % (Auto) (0.1-1.2) % Neut # (Auto) (1.78-5.38) K/mm3 Lymph # (Auto) (1.32-3.57) K/mm3 [place] # (Auto) (0.30-0.82) K/mm3 Eos # (Auto) (0.04-0.54) K/mm3 Baso # (Auto) (0.01-0.08) K/mm3 Manual Slide Review ESR (0-15) mm/hr PT (9.7-11.7) SECONDS INR APTT (22-31) SECONDS D-Dimer, Quantitative 1.68 H (0.19-0.50) mg/L Sodium (136-145) mEq/L Potassium (3.5-5.1) mEq/L Chloride (98-107) mEq/L Carbon Dioxide (21-32) mEq/L Anion Gap (5-15) BUN (7-18) mg/dL Creatinine (0.7-1.3) mg/dL Est Cr Clr Drug Dosing mL/min Estimated GFR (MDRD) (>60) mL/min BUN/Creatinine Ratio (14-18) Glucose (83-115) mg/dL Hemoglobin A1c (4.50-6.20) % Lactic Acid (0.4-2.0) mmol/L Calcium (8.5-10.1) mg/dL Phosphorus (2.6-4.7) mg/dL Magnesium (1.8-2.4) mg/dl Total Bilirubin (0.2-1.0) mg/dL AST (15-37) U/L ALT (16-63) U/L Alkaline Phosphatase (46-116) U/L CK-MB (CK-2) (0-3.6) ng/ml Troponin I (0.00-0.056) ng/mL C-Reactive Protein (<1.0) mg/dL NT-Pro-B Natriuret Pep 166 H (0-125) pg/mL Total Protein (6.4-8.2) g/dl Albumin (3.4-5.0) g/dl Globulin gm/dL Albumin/Globulin Ratio (1-2) Urine Color (Yellow) Urine Appearance (Clear) Urine pH (5.0-8.0) Ur Specific [place] (1.005-1.030) Urine Protein (Negative) Urine Glucose (UA) (Negative) Urine Ketones (Negative) Urine Occult Blood (Negative) Urine Nitrite (Negative) Urine Bilirubin (Negative) Urine Urobilinogen (0.2-1.0) Ur Leukocyte Esterase (Negative) Urine RBC (0-5) /hpf Urine WBC (0-5) /hpf Ur Squamous Epith Cells (0-5) /hpf Urine Bacteria (FEW) /hpf Urine Mucus (FEW) /hpf Ketones 0.37 (0.0-0.3) mM Blood Type Gel Antibody Screen Crossmatch 04/08/20 04/08/20 04/08/20 Range/Units 11:50 11:50 12:10 WBC (4.23-9.07) K/mm3 RBC (4.63-6.08) M/mm3 Hgb (13.7-17.5) gm/dl Hct (40.1-51.0) % MCV (79.0-92.2) fl MCH (25.7-32.2) pg MCHC (32.2-35.5) g/dl RDW Std Deviation (35.1-43.9) fL Plt Count (163-337) K/mm3 MPV (9.4-12.3) fl Neut % (Auto) (34.0-67.9) % Lymph % (Auto) (21.8-53.1) % [place] % (Auto) (5.3-12.2) % Eos % (Auto) (0.8-7.0) Baso % (Auto) (0.1-1.2) % Neut # (Auto) (1.78-5.38) K/mm3 Lymph # (Auto) (1.32-3.57) K/mm3 [place] # (Auto) (0.30-0.82) K/mm3 Eos # (Auto) (0.04-0.54) K/mm3 Baso # (Auto) (0.01-0.08) K/mm3 Manual Slide Review ESR 18 H (0-15) mm/hr PT (9.7-11.7) SECONDS INR APTT (22-31) SECONDS D-Dimer, Quantitative (0.19-0.50) mg/L Sodium (136-145) mEq/L Potassium (3.5-5.1) mEq/L Chloride (98-107) mEq/L Carbon Dioxide (21-32) mEq/L Anion Gap (5-15) BUN (7-18) mg/dL Creatinine (0.7-1.3) mg/dL Est Cr Clr Drug Dosing mL/min Estimated GFR (MDRD) (>60) mL/min BUN/Creatinine Ratio (14-18) Glucose (83-115) mg/dL Hemoglobin A1c (4.50-6.20) % Lactic Acid (0.4-2.0) mmol/L Calcium (8.5-10.1) mg/dL Phosphorus 2.8 (2.6-4.7) mg/dL Magnesium (1.8-2.4) mg/dl Total Bilirubin (0.2-1.0) mg/dL AST (15-37) U/L ALT (16-63) U/L Alkaline Phosphatase (46-116) U/L CK-MB (CK-2) (0-3.6) ng/ml Troponin I (0.00-0.056) ng/mL C-Reactive Protein (<1.0) mg/dL NT-Pro-B Natriuret Pep (0-125) pg/mL Total Protein (6.4-8.2) g/dl Albumin (3.4-5.0) g/dl Globulin gm/dL Albumin/Globulin Ratio (1-2) Urine Color (Yellow) Urine Appearance (Clear) Urine pH (5.0-8.0) Ur Specific [place] (1.005-1.030) Urine Protein (Negative) Urine Glucose (UA) (Negative) Urine Ketones (Negative) Urine Occult Blood (Negative) Urine Nitrite (Negative) Urine Bilirubin (Negative) Urine Urobilinogen (0.2-1.0) Ur Leukocyte Esterase (Negative) Urine RBC (0-5) /hpf Urine WBC (0-5) /hpf Ur Squamous Epith Cells (0-5) /hpf Urine Bacteria (FEW) /hpf Urine Mucus (FEW) /hpf Ketones (0.0-0.3) mM Blood Type A POSITIVE Gel Antibody Screen Negative Crossmatch See Detail 04/08/20 04/08/20 04/08/20 Range/Units 12:10 14:00 15:28 WBC (4.23-9.07) K/mm3 RBC (4.63-6.08) M/mm3 Hgb (13.7-17.5) gm/dl Hct (40.1-51.0) % MCV (79.0-92.2) fl MCH (25.7-32.2) pg MCHC (32.2-35.5) g/dl RDW Std Deviation (35.1-43.9) fL Plt Count (163-337) K/mm3 MPV (9.4-12.3) fl Neut % (Auto) (34.0-67.9) % Lymph % (Auto) (21.8-53.1) % [place] % (Auto) (5.3-12.2) % Eos % (Auto) (0.8-7.0) Baso % (Auto) (0.1-1.2) % Neut # (Auto) (1.78-5.38) K/mm3 Lymph # (Auto) (1.32-3.57) K/mm3 [place] # (Auto) (0.30-0.82) K/mm3 Eos # (Auto) (0.04-0.54) K/mm3 Baso # (Auto) (0.01-0.08) K/mm3 Manual Slide Review ESR (0-15) mm/hr PT (9.7-11.7) SECONDS INR APTT (22-31) SECONDS D-Dimer, Quantitative (0.19-0.50) mg/L Sodium (136-145) mEq/L Potassium (3.5-5.1) mEq/L Chloride (98-107) mEq/L Carbon Dioxide (21-32) mEq/L Anion Gap (5-15) BUN (7-18) mg/dL Creatinine (0.7-1.3) mg/dL Est Cr Clr Drug Dosing mL/min Estimated GFR (MDRD) (>60) mL/min BUN/Creatinine Ratio (14-18) Glucose (83-115) mg/dL Hemoglobin A1c 6.40 H (4.50-6.20) % Lactic Acid 3.3 H* 2.4 H* (0.4-2.0) mmol/L Calcium (8.5-10.1) mg/dL Phosphorus (2.6-4.7) mg/dL Magnesium (1.8-2.4) mg/dl Total Bilirubin (0.2-1.0) mg/dL AST (15-37) U/L ALT (16-63) U/L Alkaline Phosphatase (46-116) U/L CK-MB (CK-2) (0-3.6) ng/ml Troponin I (0.00-0.056) ng/mL C-Reactive Protein (<1.0) mg/dL NT-Pro-B Natriuret Pep (0-125) pg/mL Total Protein (6.4-8.2) g/dl Albumin (3.4-5.0) g/dl Globulin gm/dL Albumin/Globulin Ratio (1-2) Urine Color (Yellow) Urine Appearance (Clear) Urine pH (5.0-8.0) Ur Specific [place] (1.005-1.030) Urine Protein (Negative) Urine Glucose (UA) (Negative) Urine Ketones (Negative) Urine Occult Blood (Negative) Urine Nitrite (Negative) Urine Bilirubin (Negative) Urine Urobilinogen (0.2-1.0) Ur Leukocyte Esterase (Negative) Urine RBC (0-5) /hpf Urine WBC (0-5) /hpf Ur Squamous Epith Cells (0-5) /hpf Urine Bacteria (FEW) /hpf Urine Mucus (FEW) /hpf Ketones (0.0-0.3) mM Blood Type Gel Antibody Screen Crossmatch 04/08/20 Range/Units 16:35 WBC (4.23-9.07) K/mm3 RBC (4.63-6.08) M/mm3 Hgb (13.7-17.5) gm/dl Hct (40.1-51.0) % MCV (79.0-92.2) fl MCH (25.7-32.2) pg MCHC (32.2-35.5) g/dl RDW Std Deviation (35.1-43.9) fL Plt Count (163-337) K/mm3 MPV (9.4-12.3) fl Neut % (Auto) (34.0-67.9) % Lymph % (Auto) (21.8-53.1) % [place] % (Auto) (5.3-12.2) % Eos % (Auto) (0.8-7.0) Baso % (Auto) (0.1-1.2) % Neut # (Auto) (1.78-5.38) K/mm3 Lymph # (Auto) (1.32-3.57) K/mm3 [place] # (Auto) (0.30-0.82) K/mm3 Eos # (Auto) (0.04-0.54) K/mm3 Baso # (Auto) (0.01-0.08) K/mm3 Manual Slide Review ESR (0-15) mm/hr PT (9.7-11.7) SECONDS INR APTT (22-31) SECONDS D-Dimer, Quantitative (0.19-0.50) mg/L Sodium (136-145) mEq/L Potassium (3.5-5.1) mEq/L Chloride (98-107) mEq/L Carbon Dioxide (21-32) mEq/L Anion Gap (5-15) BUN (7-18) mg/dL Creatinine (0.7-1.3) mg/dL Est Cr Clr Drug Dosing mL/min Estimated GFR (MDRD) (>60) mL/min BUN/Creatinine Ratio (14-18) Glucose (83-115) mg/dL Hemoglobin A1c (4.50-6.20) % Lactic Acid (0.4-2.0) mmol/L Calcium (8.5-10.1) mg/dL Phosphorus (2.6-4.7) mg/dL Magnesium (1.8-2.4) mg/dl Total Bilirubin (0.2-1.0) mg/dL AST (15-37) U/L ALT (16-63) U/L Alkaline Phosphatase (46-116) U/L CK-MB (CK-2) (0-3.6) ng/ml Troponin I (0.00-0.056) ng/mL C-Reactive Protein (<1.0) mg/dL NT-Pro-B Natriuret Pep (0-125) pg/mL Total Protein (6.4-8.2) g/dl Albumin (3.4-5.0) g/dl Globulin gm/dL Albumin/Globulin Ratio (1-2) Urine Color Yellow (Yellow) Urine Appearance Clear (Clear) Urine pH 5.5 (5.0-8.0) Ur Specific [place] 1.025 (1.005-1.030) Urine Protein Negative (Negative) Urine Glucose (UA) 1+ H (Negative) Urine Ketones Negative (Negative) Urine Occult Blood 2+ H (Negative) Urine Nitrite Negative (Negative) Urine Bilirubin Negative (Negative) Urine Urobilinogen 0.2 (0.2-1.0) Ur Leukocyte Esterase Negative (Negative) Urine RBC 5-10 H (0-5) /hpf Urine WBC 0-5 (0-5) /hpf Ur Squamous Epith Cells 0-5 (0-5) /hpf Urine Bacteria Few (FEW) /hpf Urine Mucus Moderate H (FEW) /hpf Ketones (0.0-0.3) mM Blood Type Gel Antibody Screen Crossmatch Med Orders - Current: Current Medications Furosemide (Lasix) 20 mg IVPUSH ASDIRECTED PRN PRN Reason: AFTER BLOOD TRANSFUSIONS Last Admin: 04/08/20 22:00 Dose: 20 mg Documented by: Dextrose/Sodium Chloride (Dextrose 5%-Normal Saline) 1,000 mls @ 999 mls/hr IV ASDIRECTED [facility] Last Admin: 04/08/20 11:15 Dose: 999 mls/hr Documented by: Sodium Chloride (Normal Saline) 1,000 mls @ 125 mls/hr IV ASDIRECTED [facility] Last Admin: 04/09/20 06:19 Dose: 125 mls/hr Documented by: Ondansetron HCl (Zofran) 4 mg IV Q6H PRN PRN Reason: Nausea/Vomiting Pantoprazole Sodium (Protonix Iv) 40 mg IV Q12H [facility] Last Admin: 04/08/20 21:40 Dose: 40 mg Documented by: Discontinued Medications Sodium Chloride (Normal Saline) 1,000 mls @ 100 mls/hr IV ASDIRECTED [facility] Last Infusion: 04/08/20 13:35 Dose: 100 mls/hr Documented by: Sodium Chloride (Normal Saline) Confirm Administered Dose 250 mls @ as directed .ROUTE .STK-MED ONE Stop: 04/08/20 22:00 Last Admin: 04/08/20 23:42 Dose: Not Given Documented by: Sodium Chloride (Normal Saline) Confirm Administered Dose 250 mls @ as directed .ROUTE .STK-MED ONE Stop: 04/09/20 02:03 Last Admin: 04/09/20 02:12 Dose: Not Given Documented by: Pantoprazole Sodium (Protonix Iv) 80 mg IVPUSH BOLUS ONE Stop: 04/08/20 12:28 Last Admin: 04/08/20 12:36 Dose: 80 mg Documented by: - Exam Quality Assessment: Supplemental Oxygen General: Alert, Oriented, Cooperative HEENT: Pupils Equal, Pupils Reactive, EOMI, Mucous Membr. Moist/[place] Neck: Supple, Trachea Midline Lungs: Clear to Auscultation, Normal Respiratory Effort Cardiovascular: Regular Rate, Regular Rhythm GI/Abdominal Exam: Normal Bowel Sounds, Soft, No Distention (Male) Exam: Deferred Back Exam: Normal Inspection, Full Range of Motion Extremities: Normal Inspection, No Pedal Edema Skin: Warm, Dry, Intact Neurological: No New Focal Deficit Psy/Mental Status: Alert, Normal Affect Sepsis Event Note - Evaluation Sepsis Screening Result: No Definite Risk - Focused Exam Vital Signs: Vital Signs Temp Pulse Pulse Resp BP BP Pulse Ox 04/09/20 06:13 36.6 C 64 18 122/53 L 97 04/09/20 05:33 36.7 C 67 16 119/77 96 04/09/20 02:35 36.8 C 73 18 129/68 99 04/09/20 02:33 36.8 C 72 18 129/68 04/09/20 02:21 36.9 C 73 18 124/89 98 04/09/20 02:19 36.9 C 71 18 124/89 98 04/09/20 02:04 36.8 C 72 18 115/55 L 96 04/09/20 01:55 36.8 C 71 18 115/55 L 95 04/09/20 00:03 36.3 C 79 14 127/69 97 04/08/20 22:50 36.8 C 71 18 115/55 L 95 04/08/20 22:37 36.8 C 74 18 136/68 97 04/08/20 22:35 36.8 C 77 18 136/68 97 10/21/20 22:21 36.7 C 70 20 127/61 99 04/08/20 22:18 36.7 C 70 20 127/61 99 04/08/20 22:00 36.7 C 70 20 127/61 99 04/08/20 21:50 37.1 C 77 20 118/60 99 04/08/20 19:35 37.1 C 77 20 118/60 99 - Problem List & Annotations (1) Upper GI bleed SNOMED Code(s): 33416858 Code(s): K92.2 - GASTROINTESTINAL HEMORRHAGE, UNSPECIFIED Status: Acute Priority: High Current Visit: Yes (2) Anemia SNOMED Code(s): 989668753 Code(s): D64.9 - ANEMIA, UNSPECIFIED Status: Acute Priority: High Current Visit: Yes Qualifiers: Anemia type: other cause Other causes of anemia: acute posthemorrhagic Qualified Code(s): D62 - Acute posthemorrhagic anemia - Problem List Review Problem List Initiated/Reviewed/Updated: Yes - My Orders Last 24 Hours: My Active Orders 04/08/20 14:18 Patient Status [ADT] Routine Oxygen Therapy [RC] PRN Up With Assistance [RC] ASDIRECTED VTE/DVT Education [RC] BID Vital Signs [RC] Q4HR Consult to Physician [CONS] Routine Ondansetron [Zofran] 4 mg IV Q6H PRN VTE Mechanical Contraindications [AST] Per Unit Routine VTE Pharmacological Contraindications [AST] Per Unit Routine Resuscitation Status Routine 04/08/20 14:25 Cardiac Monitoring [RC] CONTINUOUS 04/08/20 14:26 Antiembolic Devices [RC] BID Antiembolic Hose [OM.PC] Per Unit Routine 04/08/20 14:28 Notify Provider Consults [RC] ASDIRECTED 04/08/20 14:30 Sodium Chloride 0.9% [Normal Saline] 1,000 ml IV ASDIRECTED 04/08/20 Dinner Nothing per Oral Now Diet [DIET] 04/08/20 18:15 Furosemide [Lasix] 20 mg IVPUSH ASDIRECTED PRN 04/08/20 21:00 Pantoprazole [ProTONIX IV] 40 mg IV Q12H 04/09/20 05:11 CBC WITH AUTO DIFF [HEME] AM COMPREHENSIVE METABOLIC PN,CMP [CHEM] AM - Plan Plan:: The patient is a 74-year-old gentleman who had been admitted to acute inpatient hospitalization with a diagnosis of upper GI bleed which is resulted in profound anemia. 5 units of packed red blood cells were ordered from the emergency department. I have consulted with Dr. Damico general surgeon who had reported he will do an endoscopy tomorrow. It is likely that the patient's upper GI bleeding is from the result of NSAIDs and dexamethasone for his previous COVID- 19 treatment. I have ordered repeat laboratories for tomorrow. The patient will be kept n.p.o. except for ice chips. Physical therapy and occupational therapy has also been ordered for the patient to help with ADLs and discharge planning. The patient will be kept on oxygen as necessary to keep his saturation around 90%. Anticipate discharge in 3 to 4 days. 04/09/2020 The patient will be continued NPO. He is scheduled to have possible endoscopy this afternoon. The patient disposition will be dependent upon findings of endoscopy. I have ordered repeat laboratory studies for the morning. Patient will be kept on oxygen saturations around 90%. Occupational therapy is to follow to help patient with his ADLs and discharge planning's. Patient has been encouraged to ambulate with assistance. After endoscopy the patient's diet will be advanced as tolerated.
[2020-04-09] MEDS: Phenazopyridine 95 MG Tab PO SCH ×3 (09:01→18:28)
[2020-04-09] MEDS: Pantoprazole 40 MG Vial IV SCH ×2 (09:02→21:03)
--- NOTE | 2020-04-09 11:22 | PCM.PREANE ---
Preanesthetic Assessment - Anesthesia/Transfusion/Family Hx Anesthesia History: Prior Anesthesia Without Reaction Family History of Anesthesia Reaction: No Transfusion History: Prior Transfusion Without Reaction - Review of Systems General: Fatigue, Malaise, Other (march 26, positive covid test, currently having painful urination, negative UA) Pulmonary: No Symptoms, Other Cardiovascular: Dyspnea on Exertion (3 days ago), Other (pt continues to work on daily basis prior to getting sick) Gastrointestinal: Melena Neurological: No Symptoms Other: Reports: None - Physical Assessment NPO Status Time: 11:00 (pt has been eating ice chips this am) Vital Signs: Last Vital Signs Temp 36.5 C 04/09/20 08:26 Pulse 65 04/09/20 08:26 Resp 16 04/09/20 08:26 BP 120/74 04/09/20 08:26 Pulse Ox 99 04/09/20 08:26 Height: 1.8 m Weight: 113.443 kg ASA Class: 3E Mental Status: Alert & Oriented x3 Airway Class: Mallampati = 3 Dentition: Reports: Normal Dentition (pt having pain lower right hand side, states he has a dentist appt next week tooth shoots pain at times) Thyro-Mental Finger Breadths: 3 Mouth Opening Finger Breadths: 2 ROM/Head Extension: Limited/Partial Lungs: Clear to Auscultation, Normal Respiratory Effort Cardiovascular: Regular Rate, Regular Rhythm - Lab Values: Laboratory Last Values WBC 11.63 K/mm3 (4.23-9.07) H 04/09/20 07:55 RBC 3.90 M/mm3 (4.63-6.08) L 04/09/20 07:55 Hgb 11.4 gm/dl (13.7-17.5) L D 04/09/20 07:55 Hct 33.4 % (40.1-51.0) L 04/09/20 07:55 MCV 85.6 fl (79.0-92.2) D 04/09/20 07:55 MCH 29.2 pg (25.7-32.2) 04/09/20 07:55 MCHC 34.1 g/dl (32.2-35.5) 04/09/20 07:55 RDW Std Deviation 53.1 fL (35.1-43.9) H 04/09/20 07:55 Plt Count 231 K/mm3 (163-337) 04/09/20 07:55 MPV 10.9 fl (9.4-12.3) 04/09/20 07:55 Neut % (Auto) 74.6 % (34.0-67.9) H 04/09/20 07:55 Lymph % (Auto) 15.9 % (21.8-53.1) L 04/09/20 07:55 [place] % (Auto) 8.3 % (5.3-12.2) 04/09/20 07:55 Eos % (Auto) 0.2 (0.8-7.0) L 04/09/20 07:55 Baso % (Auto) 0.1 % (0.1-1.2) 04/09/20 07:55 Neut # (Auto) 8.68 K/mm3 (1.78-5.38) H 04/09/20 07:55 Lymph # (Auto) 1.85 K/mm3 (1.32-3.57) 04/09/20 07:55 Cook # (Auto) 0.97 K/mm3 (0.30-0.82) H 04/09/20 07:55 Eos # (Auto) 0.02 K/mm3 (0.04-0.54) L 04/09/20 07:55 Baso # (Auto) 0.01 K/mm3 (0.01-0.08) 04/09/20 07:55 Manual Slide Review Not Reportable 04/09/20 07:55 ESR 18 mm/hr (0-15) H 04/08/20 12:10 PT 14.0 SECONDS (9.7-11.7) H 04/08/20 11:50 INR 1.32 04/08/20 11:50 APTT 23 SECONDS (22-31) 04/08/20 11:50 D-Dimer, Quantitative 1.68 mg/L (0.19-0.50) H 04/08/20 11:50 Sodium 141 mEq/L (136-145) 04/09/20 07:55 Potassium 4.0 mEq/L (3.5-5.1) 04/09/20 07:55 Chloride 106 mEq/L (98-107) 04/09/20 07:55 Carbon Dioxide 21 mEq/L (21-32) 04/09/20 07:55 Anion Gap 18.0 (5-15) H 04/09/20 07:55 BUN 40 mg/dL (7-18) H 04/09/20 07:55 Creatinine 1.2 mg/dL (0.7-1.3) 04/09/20 07:55 Est Cr Clr Drug Dosing 59.26 mL/min 04/09/20 07:55 Estimated GFR (MDRD) 60 mL/min (>60) 04/09/20 07:55 BUN/Creatinine Ratio 33.3 (14-18) H 04/09/20 07:55 Glucose 116 mg/dL (83-115) H 04/09/20 07:55 Hemoglobin A1c 6.40 % (4.50-6.20) H 04/08/20 14:00 Lactic Acid 2.4 mmol/L (0.4-2.0) H* 04/08/20 15:28 Calcium 8.0 mg/dL (8.5-10.1) L 04/09/20 07:55 Phosphorus 2.8 mg/dL (2.6-4.7) 04/08/20 11:50 Magnesium 1.8 mg/dl (1.8-2.4) 04/08/20 11:50 Total Bilirubin 0.7 mg/dL (0.2-1.0) 04/09/20 07:55 AST 15 U/L (15-37) 04/09/20 07:55 ALT 55 U/L (16-63) 04/09/20 07:55 Alkaline Phosphatase 42 U/L (46-116) L 04/09/20 07:55 CK-MB (CK-2) 0.6 ng/ml (0-3.6) 04/08/20 11:50 Troponin I 0.023 ng/mL (0.00-0.056) 04/08/20 11:50 C-Reactive Protein 1.4 mg/dL (<1.0) H* 04/08/20 11:50 NT-Pro-B Natriuret Pep 166 pg/mL (0-125) H 04/08/20 11:50 Total Protein 5.8 g/dl (6.4-8.2) L 04/09/20 07:55 Albumin 2.8 g/dl (3.4-5.0) L 04/09/20 07:55 Globulin 3.0 gm/dL 04/09/20 07:55 Albumin/Globulin Ratio 0.9 (1-2) L 04/09/20 07:55 Urine Color Yellow (Yellow) 04/09/20 08:27 Urine Appearance Clear (Clear) 04/09/20 08:27 Urine pH 6.0 (5.0-8.0) 04/09/20 08:27 Ur Specific [place] 1.025 (1.005-1.030) 04/09/20 08:27 Urine Protein Negative (Negative) 04/09/20 08:27 Urine Glucose (UA) Negative (Negative) 04/09/20 08:27 Urine Ketones Negative (Negative) 04/09/20 08:27 Urine Occult Blood Negative (Negative) 04/09/20 08:27 Urine Nitrite Negative (Negative) 04/09/20 08:27 Urine Bilirubin Negative (Negative) 04/09/20 08:27 Urine Urobilinogen 0.2 (0.2-1.0) 04/09/20 08:27 Ur Leukocyte Esterase Negative (Negative) 04/09/20 08:27 Urine RBC 5-10 /hpf (0-5) H 04/08/20 16:35 Urine WBC 0-5 /hpf (0-5) 04/08/20 16:35 Ur Squamous Epith Cells 0-5 /hpf (0-5) 04/08/20 16:35 Urine Bacteria Few /hpf (FEW) 04/08/20 16:35 Urine Mucus Moderate /hpf (FEW) H 04/08/20 16:35 Ketones 0.37 mM (0.0-0.3) 04/08/20 11:50 Blood Type A POSITIVE 04/08/20 11:50 Gel Antibody Screen Negative 04/08/20 11:50 Crossmatch See Detail 04/08/20 11:50 - Allergies Allergies/Adverse Reactions: Allergies Allergy/AdvReac Type Severity Reaction Status Date / Time No Known Allergies Allergy Verified 04/08/20 17:00 - Blood Blood Available: Yes Product(s) Available: PRBC - Anesthesia Plan Pre-Op Medication Ordered: None - Acknowledgements Anesthesia Type Planned: MAC Pt an Appropriate Candidate for the Planned Anesthesia: Yes Alternatives and Risks of Anesthesia Discussed w Pt/Guardian: Yes Pt/Guardian Understands and Agrees with Anesthesia Plan: Yes PreAnesthesia Questionnaire - Past Health History Medical/Surgical History: Denies Medical/Surgical History Cardiovascular History: Reports: High Cholesterol Respiratory History: Reports: Sleep Apnea Gastrointestinal History: Reports: GERD Genitourinary History: Reports: BPH (Currently on alfuzosin for his prostate enlargement) Musculoskeletal History: Reports: Amputation Neurological History: Reports: None Psychiatric History: Reports: None Endocrine/Metabolic History: Reports: Obesity/BMI 30+ Hematologic History: Reports: None Immunologic History: Reports: None - Infectious Disease History Infectious Disease History: Reports: Chicken Pox, Influenza, Measles, Mumps - SUBSTANCE USE Tobacco Use Status *Q: Never Tobacco User Recreational Drug Use History: No - HOME MEDS Home Medications: Home Meds Doxycycline [Vibramycin] 100 mg PO BID #14 tab 04/06/20 [Rx] Omeprazole 40 mg PO Q24H #30 capsule. 04/06/20 [Rx] Alfuzosin HCl [Alfuzosin HCl ER] 10 mg PO DAILY 04/08/20 [History] Aspirin [Aspirin EC] 81 mg PO DAILY 04/08/20 [History] Finasteride [Proscar] 5 mg PO DAILY 04/08/20 [History] Simvastatin 20 mg PO DAILY 04/08/20 [History] - CURRENT (IN HOUSE) MEDS Current Meds: Current Medications Furosemide (Lasix) 20 mg IVPUSH ASDIRECTED PRN PRN Reason: AFTER BLOOD TRANSFUSIONS Last Admin: 04/08/20 22:00 Dose: 20 mg Documented by: Sodium Chloride (Normal Saline) 1,000 mls @ 125 mls/hr IV ASDIRECTED [facility] Last Admin: 04/09/20 06:19 Dose: 125 mls/hr Documented by: Ondansetron HCl (Zofran) 4 mg IV Q6H PRN PRN Reason: Nausea/Vomiting Pantoprazole Sodium (Protonix Iv) 40 mg IV Q12H [facility] Last Admin: 04/09/20 09:02 Dose: 40 mg Documented by: Phenazopyridine HCl (Urinary Pain Relief) 95 mg PO TIDPC [facility] Last Admin: 04/09/20 09:01 Dose: 95 mg Documented by: Discontinued Medications Dextrose/Sodium Chloride (Dextrose 5%-Normal Saline) 1,000 mls @ 999 mls/hr IV ASDIRECTED [facility] Last Admin: 04/08/20 11:15 Dose: 999 mls/hr Documented by: Sodium Chloride (Normal Saline) 1,000 mls @ 100 mls/hr IV ASDIRECTED [facility] Last Infusion: 04/08/20 13:35 Dose: 100 mls/hr Documented by: Sodium Chloride (Normal Saline) Confirm Administered Dose 250 mls @ as directed .ROUTE .STK-MED ONE Stop: 04/08/20 22:00 Last Admin: 04/08/20 23:42 Dose: Not Given Documented by: Sodium Chloride (Normal Saline) Confirm Administered Dose 250 mls @ as directed .ROUTE .STK-MED ONE Stop: 04/09/20 02:03 Last Admin: 04/09/20 02:12 Dose: Not Given Documented by: Pantoprazole Sodium (Protonix Iv) 80 mg IVPUSH BOLUS ONE Stop: 04/08/20 12:28 Last Admin: 04/08/20 12:36 Dose: 80 mg Documented by:
--- NOTE | 2020-04-09 16:47 | PCM.CONS ---
H&P History of Present Illness - General Date of Service: 04/09/20 Admit Problem/Dx: Admission Diagnosis/Problem Admission Diagnosis/Problem GI bleed requiring more than 4 units of blood in 24 hours, ICU, or surgery, profound anemia Source of Information: Patient, Provider History Limitations: Reports: No Limitations - History of Present Illness Other HPI/Comments: Mr. Thomas is a 74 yo man who presented with profound anemia with associated s ymptoms of weakness and fatigue. Hgb was about 5 g/dL. He reports melena preceding his hospitalization. He has never had such issues, and has had unremarkable colonoscopies and more recently a negative cologuard. He takes aspirin 81 mg but is not anticoagulated. He has no history of peptic ulcer dis ease. His last bowel movement was several days ago. He was recently diagnosed and treated for COVID, and since then he reports taking motrin regularly in addition to his aspirin. He was transfused 5 u pRBC in the ER the evening of his arrival, and appeared to have a good response with HGb this morning > 11g/dL. Generalized Pain Score (Numeric/FACES): 5 - Related Data Allergies/Adverse Reactions: Allergies Allergy/AdvReac Type Severity Reaction Status Date / Time No Known Allergies Allergy Verified 04/08/20 17:00 Home Medications: Home Meds Doxycycline [Vibramycin] 100 mg PO BID #14 tab 04/06/20 [Rx] Omeprazole 40 mg PO Q24H #30 capsule. 04/06/20 [Rx] Alfuzosin HCl [Alfuzosin HCl ER] 10 mg PO DAILY 04/08/20 [History] Aspirin [Aspirin EC] 81 mg PO DAILY 04/08/20 [History] Finasteride [Proscar] 5 mg PO DAILY 04/08/20 [History] Simvastatin 20 mg PO DAILY 04/08/20 [History] Past Medical History - Past Health History Medical/Surgical History: Denies Medical/Surgical History Cardiovascular History: Reports: High Cholesterol Respiratory History: Reports: Sleep Apnea Gastrointestinal History: Reports: GERD Genitourinary History: Reports: BPH (Currently on alfuzosin for his prostate enlargement) Musculoskeletal History: Reports: Amputation Neurological History: Reports: None Psychiatric History: Reports: None Endocrine/Metabolic History: Reports: Obesity/BMI 30+ Hematologic History: Reports: None Immunologic History: Reports: None - Infectious Disease History Infectious Disease History: Reports: Chicken Pox, Influenza, Measles, Mumps Social & Family History - Tobacco Use Tobacco Use Status *Q: Never Tobacco User Years of Tobacco use: 25 Packs/Tins Daily: 3 Used Tobacco, but Quit: Yes Month/Year Tobacco Last Used: Jun 1993 - Caffeine Use Caffeine Use: Reports: Coffee - Recreational Drug Use Recreational Drug Use: No - Living Situation & Occupation Living situation: Reports: Occupation: Retired H&P Review of Systems - Review of Systems: Review Of Systems: See Below General: Reports: Weakness, Fatigue HEENT: Reports: No Symptoms Pulmonary: Reports: Shortness of Breath Cardiovascular: Reports: Lightheadedness Gastrointestinal: Reports: Melena Genitourinary: Reports: Dysuria, Burning, Pain Musculoskeletal: Reports: No Symptoms Skin: Reports: No Symptoms Psychiatric: Reports: No Symptoms Neurological: Reports: No Symptoms Hematologic/Lymphatic: Reports: Anemia Immunologic: Reports: No Symptoms Exam - Exam Exam: See Below - Vital Signs Vital Signs: Last Vital Signs Temp 36.8 C 04/09/20 15:46 Pulse 69 04/09/20 15:46 Resp 16 04/09/20 15:46 BP 145/62 H 04/09/20 15:46 Pulse Ox 97 04/09/20 15:46 Weight: 113.443 kg - Exam Quality Assessment: Supplemental Oxygen General: Alert, Oriented, Cooperative HEENT: Conjunctiva Clear Neck: Supple, Trachea Midline Lungs: Clear to Auscultation, Other (appears tachypneic and short of breath at baseline) Cardiovascular: Regular Rate, Regular Rhythm GI/Abdominal Exam: Soft, Non-Tender, No Mass Extremities: Normal Inspection Skin: Dry, Cool Neuro Extensive - Mental Status: Alert, Oriented x3 - Patient Data Lab Results Last 24 hrs: Laboratory Results - last 24 hr 04/08/20 04/08/20 04/09/20 Range/Units 11:50 16:35 07:55 WBC 11.63 H (4.23-9.07) K/mm3 RBC 3.90 L (4.63-6.08) M/mm3 Hgb 11.4 L D (13.7-17.5) gm/dl Hct 33.4 L (40.1-51.0) % MCV 85.6 D (79.0-92.2) fl MCH 29.2 (25.7-32.2) pg MCHC 34.1 (32.2-35.5) g/dl RDW Std Deviation 53.1 H (35.1-43.9) fL Plt Count 231 (163-337) K/mm3 MPV 10.9 (9.4-12.3) fl Neut % (Auto) 74.6 H (34.0-67.9) % Lymph % (Auto) 15.9 L (21.8-53.1) % [place] % (Auto) 8.3 (5.3-12.2) % Eos % (Auto) 0.2 L (0.8-7.0) Baso % (Auto) 0.1 (0.1-1.2) % Neut # (Auto) 8.68 H (1.78-5.38) K/mm3 Lymph # (Auto) 1.85 (1.32-3.57) K/mm3 [place] # (Auto) 0.97 H (0.30-0.82) K/mm3 Eos # (Auto) 0.02 L (0.04-0.54) K/mm3 Baso # (Auto) 0.01 (0.01-0.08) K/mm3 Manual Slide Review Not Reportable Sodium (136-145) mEq/L Potassium (3.5-5.1) mEq/L Chloride (98-107) mEq/L Carbon Dioxide (21-32) mEq/L Anion Gap (5-15) BUN (7-18) mg/dL Creatinine (0.7-1.3) mg/dL Est Cr Clr Drug Dosing mL/min Estimated GFR (MDRD) (>60) mL/min BUN/Creatinine Ratio (14-18) Glucose (83-115) mg/dL Calcium (8.5-10.1) mg/dL Total Bilirubin (0.2-1.0) mg/dL AST (15-37) U/L ALT (16-63) U/L Alkaline Phosphatase (46-116) U/L Total Protein (6.4-8.2) g/dl Albumin (3.4-5.0) g/dl Globulin gm/dL Albumin/Globulin Ratio (1-2) Urine Color Yellow (Yellow) Urine Appearance Clear (Clear) Urine pH 5.5 (5.0-8.0) Ur Specific [place] 1.025 (1.005-1.030) Urine Protein Negative (Negative) Urine Glucose (UA) 1+ H (Negative) Urine Ketones Negative (Negative) Urine Occult Blood 2+ H (Negative) Urine Nitrite Negative (Negative) Urine Bilirubin Negative (Negative) Urine Urobilinogen 0.2 (0.2-1.0) Ur Leukocyte Esterase Negative (Negative) Urine RBC 5-10 H (0-5) /hpf Urine WBC 0-5 (0-5) /hpf Ur Squamous Epith Cells 0-5 (0-5) /hpf Urine Bacteria Few (FEW) /hpf Urine Mucus Moderate H (FEW) /hpf Blood Type A POSITIVE Gel Antibody Screen Negative Crossmatch See Detail 04/09/20 04/09/20 Range/Units 07:55 08:27 WBC (4.23-9.07) K/mm3 RBC (4.63-6.08) M/mm3 Hgb (13.7-17.5) gm/dl Hct (40.1-51.0) % MCV (79.0-92.2) fl MCH (25.7-32.2) pg MCHC (32.2-35.5) g/dl RDW Std Deviation (35.1-43.9) fL Plt Count (163-337) K/mm3 MPV (9.4-12.3) fl Neut % (Auto) (34.0-67.9) % Lymph % (Auto) (21.8-53.1) % [place] % (Auto) (5.3-12.2) % Eos % (Auto) (0.8-7.0) Baso % (Auto) (0.1-1.2) % Neut # (Auto) (1.78-5.38) K/mm3 Lymph # (Auto) (1.32-3.57) K/mm3 [place] # (Auto) (0.30-0.82) K/mm3 Eos # (Auto) (0.04-0.54) K/mm3 Baso # (Auto) (0.01-0.08) K/mm3 Manual Slide Review Sodium 141 (136-145) mEq/L Potassium 4.0 (3.5-5.1) mEq/L Chloride 106 (98-107) mEq/L Carbon Dioxide 21 (21-32) mEq/L Anion Gap 18.0 H (5-15) BUN 40 H (7-18) mg/dL Creatinine 1.2 (0.7-1.3) mg/dL Est Cr Clr Drug Dosing 59.26 mL/min Estimated GFR (MDRD) 60 (>60) mL/min BUN/Creatinine Ratio 33.3 H (14-18) Glucose 116 H (83-115) mg/dL Calcium 8.0 L (8.5-10.1) mg/dL Total Bilirubin 0.7 (0.2-1.0) mg/dL AST 15 (15-37) U/L ALT 55 (16-63) U/L Alkaline Phosphatase 42 L (46-116) U/L Total Protein 5.8 L (6.4-8.2) g/dl Albumin 2.8 L (3.4-5.0) g/dl Globulin 3.0 gm/dL Albumin/Globulin Ratio 0.9 L (1-2) Urine Color Yellow (Yellow) Urine Appearance Clear (Clear) Urine pH 6.0 (5.0-8.0) Ur Specific [place] 1.025 (1.005-1.030) Urine Protein Negative (Negative) Urine Glucose (UA) Negative (Negative) Urine Ketones Negative (Negative) Urine Occult Blood Negative (Negative) Urine Nitrite Negative (Negative) Urine Bilirubin Negative (Negative) Urine Urobilinogen 0.2 (0.2-1.0) Ur Leukocyte Esterase Negative (Negative) Urine RBC (0-5) /hpf Urine WBC (0-5) /hpf Ur Squamous Epith Cells (0-5) /hpf Urine Bacteria (FEW) /hpf Urine Mucus (FEW) /hpf Blood Type Gel Antibody Screen Crossmatch Result Diagrams: 04/09/20 07:55 04/09/20 07:55 Mohsen Results Last 24 hrs: Microbiology 04/08/20 12:10 Aerobic Blood Culture - Preliminary Blood - Venous - Lab Draw NO GROWTH AFTER 1 DAY Anaerobic Blood Culture - Preliminary NO GROWTH AFTER 1 DAY Sepsis Event Note - Evaluation Sepsis Screening Result: No Definite Risk - Focused Exam Vital Signs: Vital Signs Temp Pulse Pulse Resp BP BP Pulse Ox 04/09/20 15:46 36.8 C 69 16 145/62 H 97 04/09/20 12:43 36.8 C 67 18 142/57 H 96 04/09/20 11:08 36.9 C 69 16 158/61 H 98 04/09/20 08:26 36.5 C 65 16 120/74 99 04/09/20 06:17 36.6 C 64 18 122/53 L 98 04/09/20 06:13 36.6 C 64 18 122/53 L 97 04/09/20 05:33 36.7 C 67 16 119/77 96 *Q Meaningful Use (ADM) - VTE *Q VTE Mechanical Contraindications *Q: At Risk for Falls VTE Pharmacological Contraindications *Q: Active Hemorrhage Consult PN Assessment/Plan Procedures: Procedures ASSAY OF FERRITIN (03/28/20) ASSAY OF IRON (01/07/20) ASSAY OF LACTIC ACID (03/28/20) ASSAY OF MAGNESIUM (03/28/20) ASSAY OF NATRIURETIC PEPTIDE (04/06/20) ASSAY OF PSA TOTAL (04/18/18) ASSAY OF TRANSFERRIN (01/07/20) ASSAY OF TROPONIN QUANT (04/06/20) ASSAY THYROID STIM HORMONE (12/20/19) C-REACTIVE PROTEIN (03/28/20) CARDIOVASCULAR STRESS TEST (07/24/17) COMPLETE CBC AUTOMATED (01/07/20) COMPLETE CBC W/AUTO DIFF WBC (04/06/20) COMPREHEN METABOLIC PANEL (04/06/20) CREATINE MB FRACTION (03/28/20) CT ANGIOGRAPHY CHEST (04/06/20) CT NECK SPINE W/O DYE (10/01/15) CULTURE OTHR SPECIMN AEROBIC (06/22/15) ELECTROCARDIOGRAM TRACING (04/06/20) EMERGENCY DEPT VISIT (04/06/20) FIBRIN DEGRADATION QUANT (04/06/20) GLYCOSYLATED HEMOGLOBIN TEST (03/20/19) HEMATOCRIT (04/06/20) HEMOGLOBIN (04/06/20) HEPATITIS C AB TEST (03/20/19) HT MUSCLE IMAGE SPECT MULT (07/24/17) LACTATE (LD) (LDH) ENZYME (03/28/20) LIPID PANEL (12/20/19) PROTHROMBIN TIME (04/06/20) ROUTINE VENIPUNCTURE (04/06/20) TEST FOR ACETONE/KETONES (03/28/20) THER/PROPH/DIAG INJ IV PUSH (04/06/20) THROMBOPLASTIN TIME PARTIAL (04/06/20) TISSUE EXAM BY PATHOLOGIST (01/10/19) TTE W/DOPPLER COMPLETE (07/24/17) URINALYSIS AUTO W/O SCOPE (09/09/16) URINALYSIS AUTO W/SCOPE (12/20/19) VITAMIN B-12 (01/07/20) X-RAY EXAM CHEST 1 VIEW (04/06/20) Problem List Initiated/Reviewed/Updated: Yes My Orders Last 24 Hours: My Active Orders 04/09/20 14:16 Schedule Procedure [COMM] Routine 04/10/20 00:00 Sodium Chloride 0.9% [Normal Saline] 1,000 ml IV ASDIRECTED 04/10/20 Breakfast NPO After Midnight [Nothing per Oral After Midnight Diet] [DIET] Plan: Presents with profound acute anemia and reports melena, with recent history of regular NSAID use. Hemodynamically stable with good response to 5 u pRBC. Was due for diagnostic EGD today but because of scheduling issues and the fact that the patient has been stable and asymptomatic today we will plan to scope first thing in the morning. If EGD is unremarkable patient will need to be set up for colonoscopy.
[2020-04-10] MEDS ORDERED: Sodium Chloride 0.9% 1,000 ML IV SCH
[2020-04-10] MEDS ORDERED: Propofol 200 MG/20 ML SDV ONE (07:31)
[2020-04-10] MEDS ORDERED: Lidocaine 4% Top Soln 50 ML Bottle ONE (07:48)
[2020-04-10] MEDS ORDERED: Ketamine 500 mg/10 ML MDV ONE (07:57)
--- NOTE | 2020-04-10 08:31 | PCM48HPAN ---
Post Anesthesia Note - EVALUATION WITHIN 48HRS OF ANESTHETIC Vital Signs in Normal Range: Yes Patient Participated in Evaluation: Yes Respiratory Function Stable: Yes Airway Patent: Yes Cardiovascular Function Stable: Yes Hydration Status Stable: Yes Pain Control Satisfactory: Yes Nausea and Vomiting Control Satisfactory: Yes Mental Status Recovered: Yes Vital Signs: Last Vital Signs Temp 97.9 F 04/10/20 03:50 Pulse 65 04/10/20 03:50 Resp 18 04/10/20 03:50 BP 123/63 04/10/20 03:50 Pulse Ox 98 04/10/20 03:50 0818 67 95% 20 133/66
--- NOTE | 2020-04-10 09:26 | PCM.PRNOTE ---
- Free Text/Narrative Note: Date: 04/10/2020 Procedure: diagnostic EGD Indication: GI bleed Surgeon: Boris Damico MD Findings: single discrete gastric cardia ulcer measuring about 2 cm, no overlying clot or visible vessel. Otherwise normal EGD. Detailed Report: The patient was taken to the endoscopy suite and placed in left lateral decu bitus position. Time out was performed and monitored anesthesia care initiated. A bite block was placed and the endoscope was inserted orally. The scope was advanced to the second portion of the duodenum with ease. Duodenum appeared normal. On withdrawal, there was a gastric ulcer a few centimeters away from the EG junction with clean base. No hematoma was noted. There was no blood in the stomach. No biopsy was obtained. No hiatal hernia was noted and the Z-line appeared normal. No esophageal pathology was noted. Air was suctioned from the stomach and the scope withdrawn. The patient tolerated the procedure well.
[2020-04-10] MEDS: Phenazopyridine 95 MG Tab PO SCH ×2 (09:38→18:02)
[2020-04-10] MEDS ORDERED: Simvastatin 20 MG Tab PO SCH (10:00)
[2020-04-10] MEDS ORDERED: Finasteride 5 MG Tab PO SCH (10:00)
[2020-04-10] MEDS ORDERED: Pantoprazole 40 MG Tab.CR PO SCH (10:00)
[2020-04-10] MEDS ORDERED: Tamsulosin 0.4 MG Cap.ER PO SCH (10:00)
--- NOTE | 2020-04-10 15:16 | PCM.DCSUM1 ---
<Jaden Guerrero - Last Filed: 04/10/20 15:18> Discharge Summary - Hospital Course HPI Initial Comments: The patient is a 74-year-old gentleman who has presented to the emergency department primarily out of concern for weakness and fatigue. Patient says that he has been dizzy and lightheaded as well. He also has been somewhat short of breath. The patient was previously evaluated his ago and had been diagnosed with COVID-19. The patient had not been admitted directly to the hospital. The patient at that time had a normal hemoglobin. The patient while in the emergency department was noted to have a hemoglobin of 5.3 g/dL. The patient later admitted to 2 days ago having melanotic stools at least 3 times. He also admits to have been taking Motrin along with dexamethasone. The patient also has been taking medication for his dyslipidemia, GERD and prostate issues. The patient denies any specific aggravating or relieving factors although he says that he feels somewhat tired currently. The patient had been in his usual state of health up until his recent Covid diagnosis. The patient reports that he had been given the all clear by the [facility]. Diagnosis: Stroke: No - Discharge Data Discharge Date: 04/10/20 (Admit date: 04/08/20) Discharge Disposition: Home, Self-Care 01 Condition: Good - Referral to Home Health Primary Care Physician: Carolyn Romero NP - Discharge Diagnosis/Problem(s) (1) Anemia SNOMED Code(s): 940391587 ICD Code: D64.9 - ANEMIA, UNSPECIFIED Status: Acute Priority: High Current Visit: Yes Qualifiers: Anemia type: other cause Other causes of anemia: acute posthemorrhagic Qualified Code(s): D62 - Acute posthemorrhagic anemia (2) Upper GI bleed SNOMED Code(s): 07683141 ICD Code: K92.2 - GASTROINTESTINAL HEMORRHAGE, UNSPECIFIED Status: Acute Priority: High Current Visit: Yes - Patient Summary/Data Consults: Consultations 04/08/20 14:18 Consult to Physician [CONS] Routine Hospital Course: The patient is a 74-year-old gentleman who had been admitted to acute inpatient hospitalization with a diagnosis of upper GI bleed which is resulted in profound anemia. 5 units of packed red blood cells were ordered from the emergency department. I have consulted with Dr. Damico general surgeon who had reported he will do an endoscopy tomorrow. It is likely that the patient's upper GI bleeding is from the result of NSAIDs and dexamethasone for his previous COVID- 19 treatment. I have ordered repeat laboratories for tomorrow. The patient will be kept n.p.o. except for ice chips. Physical therapy and occupational therapy has also been ordered for the patient to help with ADLs and discharge planning. The patient will be kept on oxygen as necessary to keep his saturation around 90%. Anticipate discharge in 3 to 4 days. 04/09/2020 The patient will be continued NPO. He is scheduled to have possible endoscopy this afternoon. The patient disposition will be dependent upon findings of endoscopy. I have ordered repeat laboratory studies for the morning. Patient will be kept on oxygen saturations around 90%. Occupational therapy is to follow to help patient with his ADLs and discharge planning's. Patient has been encouraged to ambulate with assistance. After endoscopy the patient's diet will be advanced as tolerated. 04/10/20 The patient was taken to the endoscopy suite and placed in left lateral decubitus position. Time out was performed and monitored anesthesia care initiated. A bite block was placed and the endoscope was inserted orally. The scope was advanced to the second portion of the duodenum with ease. Duodenum ap peared normal. On withdrawal, there was a gastric ulcer a few centimeters away from the EG junction with clean base. No hematoma was noted. There was no blood in the stomach. No biopsy was obtained. No hiatal hernia was noted and the Z- line appeared normal. No esophageal pathology was noted. Air was suctioned from the stomach and the scope withdrawn. The patient tolerated the procedure well. The patient is cleared by Dr. Damico to be discharged to home today. Recommendations include a proton pump inhibitor daily which the patient is already taking and to follow-up with Dr. Damico in 1 month. The patient has had significant issues with urinary retention over the course of the last 24 hours. He states that he has had issues with this for quite some time now and he is up about every 15 minutes throughout the night when he is at home and only is voiding in small amounts. Per the nurses notes he has been bladder scanned and straight cathed twice for significant volume of urinary retention. At this time, after discussion with Dr. Rush, we agree that it would be best to send the patient home with a Artis catheter and to follow-up with Carolyn Romero first thing next week. The patient states he has seen Dr. Willingham in the past and was trying to just be managed on medications. The patient is agreeable to this plan of care. - Patient Instructions Diet: Regular Diet as Tolerated Activity: As Tolerated Notify Provider of: Fever, Increased Pain, Nausea and/or Vomiting Other/Special Instructions: Patient may be discharged to home. Patient will go home with a Artis catheter, as he has had significant issues with urinary retention and needing to be straight catheter while in the hospital. Follow-up with Nadege Romero on Monday for urinary retention issues. Follow-up with Dr. Damico in 1 month for follow-up of ulcer. Should you develop a fever or your condition worsens or changes please follow-up in the emergency department - Discharge Plan *PRESCRIPTION DRUG MONITORING PROGRAM REVIEWED*: Not Applicable *COPY OF PRESCRIPTION DRUG MONITORING REPORT IN PATIENT REYNA: Not Applicable Home Medications: Home Meds Omeprazole 40 mg PO Q24H #30 capsule. 04/06/20 [Rx] Alfuzosin HCl [Alfuzosin HCl ER] 10 mg PO DAILY 04/08/20 [History] Aspirin [Aspirin EC] 81 mg PO DAILY 04/08/20 [History] Finasteride [Proscar] 5 mg PO DAILY 04/08/20 [History] Simvastatin 20 mg PO DAILY 04/08/20 [History] Oxygen Therapy Mode: Room Air Patient Handouts: COVID-19 Frequently Asked Questions, COVID-19, Indwelling Urinary Catheter Care, Adult, [id number], COVID-19: How to Protect Yourself and Others - CDC, Dysuria, Gastrointestinal Bleeding, [id number], Prevent the Spread of COVID-19 if You Are Sick - CDC Referrals: Carolyn Romero LAW OFFICE RECEPTIONIST [Primary Care Provider] - 04/14/20 11:00 am (Please ask Carolyn Romero for a referral to your Urologist. Check-in time for 11am appointment is 10:30am.) Boris Damico MD [Physician] - 05/08/20 1:00 pm (Please follow-up with Dr. Damico on May 08 @ 1pm. Check in time is 12:30pm.) - Discharge Summary/Plan Comment DC Time >30 min.: Yes (insertion of artis catheter prior to discharge) - Patient Data Vitals - Most Recent: Last Vital Signs Temp 98.1 F 04/10/20 12:13 Pulse 71 04/10/20 12:13 Resp 24 H 04/10/20 12:13 BP 143/90 H 04/10/20 12:13 Pulse Ox 97 04/10/20 12:13 Weight - Most Recent: 115.303 kg I&O - Last 24 hours: Intake & Output 04/10/20 04/10/20 04/10/20 06:59 14:59 22:59 Intake Total 354 860 Output Total 2500 Balance -2146 860 Lab Results - Last 24 hrs: Laboratory Results - last 24 hr 04/10/20 04/10/20 Range/Units 10:05 10:05 WBC 14.33 H (4.23-9.07) K/mm3 RBC 3.81 L (4.63-6.08) M/mm3 Hgb 11.2 L (13.7-17.5) gm/dl Hct 33.4 L (40.1-51.0) % MCV 87.7 (79.0-92.2) fl MCH 29.4 (25.7-32.2) pg MCHC 33.5 (32.2-35.5) g/dl RDW Std Deviation 53.3 H (35.1-43.9) fL Plt Count 250 (163-337) K/mm3 MPV 10.2 (9.4-12.3) fl Neut % (Auto) 77.7 H (34.0-67.9) % Lymph % (Auto) 13.3 L (21.8-53.1) % [place] % (Auto) 8.0 (5.3-12.2) % Eos % (Auto) 0.4 L (0.8-7.0) Baso % (Auto) 0.1 (0.1-1.2) % Neut # (Auto) 11.13 H (1.78-5.38) K/mm3 Lymph # (Auto) 1.90 (1.32-3.57) K/mm3 [place] # (Auto) 1.15 H (0.30-0.82) K/mm3 Eos # (Auto) 0.06 (0.04-0.54) K/mm3 Baso # (Auto) 0.02 (0.01-0.08) K/mm3 Sodium 140 (136-145) mEq/L Potassium 3.7 (3.5-5.1) mEq/L Chloride 106 (98-107) mEq/L Carbon Dioxide 22 (21-32) mEq/L Anion Gap 15.7 H (5-15) BUN 28 H (7-18) mg/dL Creatinine 1.1 (0.7-1.3) mg/dL Est Cr Clr Drug Dosing 64.65 mL/min Estimated GFR (MDRD) > 60 (>60) mL/min BUN/Creatinine Ratio 25.5 H (14-18) Glucose 94 (83-115) mg/dL Calcium 8.4 L (8.5-10.1) mg/dL Magnesium 2.1 (1.8-2.4) mg/dl Total Bilirubin 0.9 (0.2-1.0) mg/dL AST 18 (15-37) U/L ALT 58 (16-63) U/L Alkaline Phosphatase 52 (46-116) U/L Total Protein 6.0 L (6.4-8.2) g/dl Albumin 2.9 L (3.4-5.0) g/dl Globulin 3.1 gm/dL Albumin/Globulin Ratio 0.9 L (1-2) KAYLI Results - Last 24 hrs: Microbiology 04/08/20 12:10 Aerobic Blood Culture - Preliminary Blood - Venous - Lab Draw NO GROWTH AFTER 2 DAYS Anaerobic Blood Culture - Preliminary NO GROWTH AFTER 2 DAYS Med Orders - Current: Current Medications Finasteride (Proscar) 5 mg PO DAILY [facility] Last Admin: 04/10/20 09:36 Dose: 5 mg Documented by: Ondansetron HCl (Zofran) 4 mg IV Q6H PRN PRN Reason: Nausea/Vomiting Pantoprazole Sodium (Protonix) 40 mg PO DAILY [facility] Last Admin: 04/10/20 09:36 Dose: 40 mg Documented by: Phenazopyridine HCl (Urinary Pain Relief) 95 mg PO TIDPC [facility] Last Admin: 04/10/20 09:38 Dose: 95 mg Documented by: Simvastatin (Zocor) 20 mg PO DAILY [facility] Last Admin: 04/10/20 09:38 Dose: 20 mg Documented by: Tamsulosin HCl (Flomax) 0.4 mg PO DAILY [facility] Last Admin: 04/10/20 09:38 Dose: 0.4 mg Documented by: Discontinued Medications Furosemide (Lasix) 20 mg IVPUSH ASDIRECTED PRN PRN Reason: AFTER BLOOD TRANSFUSIONS Last Admin: 04/08/20 22:00 Dose: 20 mg Documented by: Dextrose/Sodium Chloride (Dextrose 5%-Normal Saline) 1,000 mls @ 999 mls/hr IV ASDIRECTED [facility] Last Admin: 04/08/20 11:15 Dose: 999 mls/hr Documented by: Sodium Chloride (Normal Saline) 1,000 mls @ 100 mls/hr IV ASDIRECTED [facility] Last Infusion: 04/08/20 13:35 Dose: 100 mls/hr Documented by: Sodium Chloride (Normal Saline) 1,000 mls @ 125 mls/hr IV ASDIRECTED [facility] Stop: 04/09/20 23:55 Last Admin: 04/09/20 15:49 Dose: 125 mls/hr Documented by: Sodium Chloride (Normal Saline) Confirm Administered Dose 250 mls @ as directed .ROUTE .STK-MED ONE Stop: 04/08/20 22:00 Last Admin: 04/08/20 23:42 Dose: Not Given Documented by: Sodium Chloride (Normal Saline) Confirm Administered Dose 250 mls @ as directed .ROUTE .STK-MED ONE Stop: 04/09/20 02:03 Last Admin: 04/09/20 02:12 Dose: Not Given Documented by: Sodium Chloride (Normal Saline) 1,000 mls @ 50 mls/hr IV ASDIRECTED [facility] Last Admin: 04/10/20 00:46 Dose: 50 mls/hr Documented by: Ketamine HCl (Ketalar) Confirm Administered Dose 500 mg .ROUTE .STK-MED ONE Stop: 04/10/20 07:58 Lidocaine HCl (Xylocaine 4% Top Soln) Confirm Administered Dose 50 ml .ROUTE .STK-MED ONE Stop: 04/10/20 07:49 Pantoprazole Sodium (Protonix Iv) 80 mg IVPUSH BOLUS ONE Stop: 04/08/20 12:28 Last Admin: 04/08/20 12:36 Dose: 80 mg Documented by: Pantoprazole Sodium (Protonix Iv) 40 mg IV Q12H [facility] Last Admin: 04/09/20 21:03 Dose: 40 mg Documented by: Propofol (Diprivan 20 Ml) Confirm Administered Dose 200 mg .ROUTE .STK-MED ONE Stop: 04/10/20 07:32 *Q Meaningful Use (DIS) - VTE *Q VTE Mechanical Contraindications *Q: At Risk for Falls VTE Pharmacological Contraindications *Q: Active Hemorrhage <Omar Rush - Last Filed: 04/10/20 16:26> Discharge Summary - Referral to Home Health Primary Care Physician: Carolyn Romero NP - Discharge Diagnosis/Problem(s) (1) Upper GI bleed SNOMED Code(s): 17964464 ICD Code: K92.2 - GASTROINTESTINAL HEMORRHAGE, UNSPECIFIED Status: Acute Priority: High Current Visit: Yes (2) Anemia SNOMED Code(s): 705456922 ICD Code: D64.9 - ANEMIA, UNSPECIFIED Status: Acute Priority: High Current Visit: Yes Qualifiers: Anemia type: other cause Other causes of anemia: acute posthemorrhagic Qualified Code(s): D62 - Acute posthemorrhagic anemia - Patient Summary/Data Consults: Consultations 04/08/20 14:18 Consult to Physician [CONS] Routine Hospital Course: I have seen and examined the patient independent of nurse practitioner Jaden Guerrero and I have discussed the case with her. I have reviewed and agree with the assessment and plan as outlined for this patient by her. Please see orders. - Patient Data Vitals - Most Recent: Last Vital Signs Temp 36.7 C 04/10/20 12:13 Pulse 71 04/10/20 12:13 Resp 24 H 04/10/20 12:13 BP 143/90 H 04/10/20 12:13 Pulse Ox 97 04/10/20 12:13 I&O - Last 24 hours: Intake & Output 04/10/20 04/10/20 04/10/20 06:59 14:59 22:59 Intake Total 354 860 360 Output Total 2500 Balance -2146 860 360 Lab Results - Last 24 hrs: Laboratory Results - last 24 hr 04/10/20 04/10/20 Range/Units 10:05 10:05 WBC 14.33 H (4.23-9.07) K/mm3 RBC 3.81 L (4.63-6.08) M/mm3 Hgb 11.2 L (13.7-17.5) gm/dl Hct 33.4 L (40.1-51.0) % MCV 87.7 (79.0-92.2) fl MCH 29.4 (25.7-32.2) pg MCHC 33.5 (32.2-35.5) g/dl RDW Std Deviation 53.3 H (35.1-43.9) fL Plt Count 250 (163-337) K/mm3 MPV 10.2 (9.4-12.3) fl Neut % (Auto) 77.7 H (34.0-67.9) % Lymph % (Auto) 13.3 L (21.8-53.1) % [place] % (Auto) 8.0 (5.3-12.2) % Eos % (Auto) 0.4 L (0.8-7.0) Baso % (Auto) 0.1 (0.1-1.2) % Neut # (Auto) 11.13 H (1.78-5.38) K/mm3 Lymph # (Auto) 1.90 (1.32-3.57) K/mm3 [place] # (Auto) 1.15 H (0.30-0.82) K/mm3 Eos # (Auto) 0.06 (0.04-0.54) K/mm3 Baso # (Auto) 0.02 (0.01-0.08) K/mm3 Sodium 140 (136-145) mEq/L Potassium 3.7 (3.5-5.1) mEq/L Chloride 106 (98-107) mEq/L Carbon Dioxide 22 (21-32) mEq/L Anion Gap 15.7 H (5-15) BUN 28 H (7-18) mg/dL Creatinine 1.1 (0.7-1.3) mg/dL Est Cr Clr Drug Dosing 64.65 mL/min Estimated GFR (MDRD) > 60 (>60) mL/min BUN/Creatinine Ratio 25.5 H (14-18) Glucose 94 (83-115) mg/dL Calcium 8.4 L (8.5-10.1) mg/dL Magnesium 2.1 (1.8-2.4) mg/dl Total Bilirubin 0.9 (0.2-1.0) mg/dL AST 18 (15-37) U/L ALT 58 (16-63) U/L Alkaline Phosphatase 52 (46-116) U/L Total Protein 6.0 L (6.4-8.2) g/dl Albumin 2.9 L (3.4-5.0) g/dl Globulin 3.1 gm/dL Albumin/Globulin Ratio 0.9 L (1-2) KAYLI Results - Last 24 hrs: Microbiology 04/08/20 12:10 Aerobic Blood Culture - Preliminary Blood - Venous - Lab Draw NO GROWTH AFTER 2 DAYS Anaerobic Blood Culture - Preliminary NO GROWTH AFTER 2 DAYS Med Orders - Current: Current Medications Finasteride (Proscar) 5 mg PO DAILY [facility] Last Admin: 04/10/20 09:36 Dose: 5 mg Documented by: Influenza Virus Vaccine (Fluzone High-Dose Quad ) 240 mcg IM .ONCE ONE Stop: 04/10/20 16:31 Last Admin: 04/10/20 16:20 Dose: 240 mcg Documented by: Ondansetron HCl (Zofran) 4 mg IV Q6H PRN PRN Reason: Nausea/Vomiting Pantoprazole Sodium (Protonix) 40 mg PO DAILY [facility] Last Admin: 04/10/20 09:36 Dose: 40 mg Documented by: Phenazopyridine HCl (Urinary Pain Relief) 95 mg PO TIDPC [facility] Last Admin: 04/10/20 09:38 Dose: 95 mg Documented by: Simvastatin (Zocor) 20 mg PO DAILY [facility] Last Admin: 04/10/20 09:38 Dose: 20 mg Documented by: Tamsulosin HCl (Flomax) 0.4 mg PO DAILY [facility] Last Admin: 04/10/20 09:38 Dose: 0.4 mg Documented by: Discontinued Medications Furosemide (Lasix) 20 mg IVPUSH ASDIRECTED PRN PRN Reason: AFTER BLOOD TRANSFUSIONS Last Admin: 04/08/20 22:00 Dose: 20 mg Documented by: Dextrose/Sodium Chloride (Dextrose 5%-Normal Saline) 1,000 mls @ 999 mls/hr IV ASDIRECTED [facility] Last Admin: 04/08/20 11:15 Dose: 999 mls/hr Documented by: Sodium Chloride (Normal Saline) 1,000 mls @ 100 mls/hr IV ASDIRECTED [facility] Last Infusion: 04/08/20 13:35 Dose: 100 mls/hr Documented by: Sodium Chloride (Normal Saline) 1,000 mls @ 125 mls/hr IV ASDIRECTED [facility] Stop: 04/09/20 23:55 Last Admin: 04/09/20 15:49 Dose: 125 mls/hr Documented by: Sodium Chloride (Normal Saline) Confirm Administered Dose 250 mls @ as directed .ROUTE .STK-MED ONE Stop: 04/08/20 22:00 Last Admin: 04/08/20 23:42 Dose: Not Given Documented by: Sodium Chloride (Normal Saline) Confirm Administered Dose 250 mls @ as directed .ROUTE .STK-MED ONE Stop: 04/09/20 02:03 Last Admin: 04/09/20 02:12 Dose: Not Given Documented by: Sodium Chloride (Normal Saline) 1,000 mls @ 50 mls/hr IV ASDIRECTED [facility] Last Admin: 04/10/20 00:46 Dose: 50 mls/hr Documented by: Ketamine HCl (Ketalar) Confirm Administered Dose 500 mg .ROUTE .STK-MED ONE Stop: 04/10/20 07:58 Lidocaine HCl (Xylocaine 4% Top Soln) Confirm Administered Dose 50 ml .ROUTE .STK-MED ONE Stop: 04/10/20 07:49 Pantoprazole Sodium (Protonix Iv) 80 mg IVPUSH BOLUS ONE Stop: 04/08/20 12:28 Last Admin: 04/08/20 12:36 Dose: 80 mg Documented by: Pantoprazole Sodium (Protonix Iv) 40 mg IV Q12H [facility] Last Admin: 04/09/20 21:03 Dose: 40 mg Documented by: Propofol (Diprivan 20 Ml) Confirm Administered Dose 200 mg .ROUTE .STK-MED ONE Stop: 04/10/20 07:32
[2020-04-10] MEDS ORDERED: FLU Vacc QV2020-21(65YR UP)/PF 240 MCG/0.7 ML Syringe IM ONE (16:30)
== END 2020-04-10 16:55 | disposition home or self-care (01) | DRG 378 ==
LOC: JD.ED 10:30 → JD.MS 14:17
PROVIDERS: ADMIT Internal Medicine; ATTEND Internal Medicine
PROC: 0DJ08ZZ Inspection of Upper Intestinal Tract, Via Natural or Artificial Opening Endoscopic (ICD-10-PCS; principal; 2020-04-10)
PROC: 30233N1 Transfusion of Nonautologous Red Blood Cells into Peripheral Vein, Percutaneous Approach (ICD-10-PCS; 2020-04-10)
DX: K29.71 Gastritis, unspecified, with bleeding (principal); K92.2 Gastrointestinal hemorrhage, unspecified; I95.9 Hypotension, unspecified; E78.00 Pure hypercholesterolemia, unspecified; G47.30 Sleep apnea, unspecified; D62 Acute posthemorrhagic anemia; K25.9 Gastric ulcer, unspecified as acute or chronic, without hemorrhage or perforation; Z79.82 Long term (current) use of aspirin; Z79.899 Other long term (current) drug therapy; T39.395A Adverse effect of other nonsteroidal anti-inflammatory drugs [NSAID], initial encounter; Y92.89 Other specified places as the place of occurrence of the external cause; K21.9 Gastro-esophageal reflux disease without esophagitis; G47.33 Obstructive sleep apnea (adult) (pediatric); E78.5 Hyperlipidemia, unspecified; N40.0 Benign prostatic hyperplasia without lower urinary tract symptoms
CPT/HCPCS: 36415; 36430; 71045; 80053; 82009; 82553; 83036; 83605; 83735; 83880; 84100; 84484; 85025; 85379; 85610; 85652; 85730; 86140; 86850; 86900; 86901; 86922; 87040; 93005; 96374; 99285; C9113; J7030; J7042; P9016; 00731; 51701; 51702; 51798; 81001; 81003; 90662; A9270-GY; G0008; J1940; J2704

== ENCOUNTER 2020-04-13 13:16 | Emergency (ER) | payer OTHER, MEDICARE, BC ==
[2020-04-13] MEDS ORDERED: Levofloxacin 750 MG Tab PO ONE (13:52)
--- NOTE | 2020-04-13 14:00 | EDM.PDOC ---
ED HPI GENERAL MEDICAL PROBLEM - General Chief Complaint: Genitourinary Problem Stated Complaint: CATHETER COMPLAINT Time Seen by Provider: 04/13/20 13:31 Source of Information: Reports: Patient, Old Records (hospital record), RN Notes Reviewed History Limitations: Reports: No Limitations - History of Present Illness INITIAL COMMENTS - FREE TEXT/NARRATIVE: Patient is a 74-year-old male who presents to the ED for his Ordonez catheter issue. The patient states he was discharged from the hospital this last Monday, and had a Ordonez placed due to urinary retention. Patient notes he has a history of prostate issues. But the urinary retention was new for him. He has not been having issues with this at home other than some slight leakage that he noticed today. He was concerned because of the leakage. He states that there is some bloody urine within the bag, or that is been "tea colored", but has been that way since discharge. He is not noticed any clots in his urine. He has not had any fevers or chills, cough or shortness of breath. He states that prior to the Ordonez catheter insertion for urinary retention, he did have 2 other catheterization while being in the hospital; and states he did have some slight burning with urinary frequency noted. He does not recall being on any antibiotics for multiple manipulations. He is not having any nausea or vomiting, no diarrhea or constipation. He is to have a follow-up with his primary care provider tomorrow regarding the urinary retention. - Related Data Allergies Allergy/AdvReac Type Severity Reaction Status Date / Time No Known Allergies Allergy Verified 04/13/20 13:29 Home Meds: Home Meds Omeprazole 40 mg PO Q24H #30 capsule. 04/06/20 [Rx] Alfuzosin HCl [Alfuzosin HCl ER] 10 mg PO DAILY 04/08/20 [History] Aspirin [Aspirin EC] 81 mg PO DAILY 04/08/20 [History] Finasteride [Proscar] 5 mg PO DAILY 04/08/20 [History] Simvastatin 20 mg PO DAILY 04/08/20 [History] Past Medical History HEENT History: Reports: Impaired Vision Cardiovascular History: Reports: High Cholesterol Respiratory History: Reports: Sleep Apnea Gastrointestinal History: Reports: GERD, GI Bleed, PUD Genitourinary History: Reports: BPH, Retention, Urinary Musculoskeletal History: Reports: Amputation (of distal finger tip) Neurological History: Reports: None Endocrine/Metabolic History: Reports: Obesity/BMI 30+ - Infectious Disease History Infectious Disease History: Reports: Chicken Pox, Measles, Mumps, Novel Coronavirus (03/26/2020) - Past Surgical History GI Surgical History: Reports: Other (See Below) Other GI Surgeries/Procedures: EGD for GI bleed 03/2020 Social & Family History - Family History Family Medical History: Noncontributory HEENT: Reports: None Cardiac: Reports: None Respiratory: Reports: None GI: Reports: None : Reports: None OBGYN: Reports: None Musculoskeletal: Reports: None Neurological: Reports: None Psychiatric: Reports: None Endocrine/Metabolic: Reports: None Hematologic: Reports: None Immunologic: Reports: None Oncologic: Reports: None - Tobacco Use Tobacco Use Status *Q: Current Some Day Tobacco User Years of Tobacco use: 20 Packs/Tins Daily: 1 Used Tobacco, but Quit: Yes Month/Year Tobacco Last Used: 03/1995 - Caffeine Use Caffeine Use: Reports: Coffee - Recreational Drug Use Recreational Drug Use: No - Living Situation & Occupation Living situation: Reports: Occupation: Retired ED ROS GENERAL - Review of Systems Review Of Systems: Comprehensive ROS is negative, except as noted in HPI. ED EXAM, RENAL/ - Physical Exam Exam: See Below Exam Limited By: No Limitations General Appearance: Alert, WD/WN, No Apparent Distress Respiratory/Chest: No Respiratory Distress, Lungs Clear, Normal Breath Sounds, No Accessory Muscle Use, Chest Non-Tender Cardiovascular: Normal Peripheral Pulses, Regular Rate, Rhythm, No Murmur GI/Abdominal: Normal Bowel Sounds, Soft, Non-Tender, No Distention, No Mass (Male) Exam: Normal Inspection (some clear leakage noted at urinary meatus, but no discharge that is malordorous.) Extremities: Normal Inspection, Normal Capillary Refill Neurological: Alert, Oriented, Normal Cognition, No Motor/Sensory Deficits Psychiatric: Normal Affect, Normal Mood Skin Exam: Warm, Dry, Intact, Normal Color, No Rash Course - Vital Signs Last Recorded V/S: Last Vital Signs Temp 97.6 F 04/13/20 13:35 Pulse 73 04/13/20 13:35 Resp 18 04/13/20 13:35 BP 153/63 H 04/13/20 13:35 Pulse Ox 96 04/13/20 13:35 - Orders/Labs/Meds Orders: Active Orders 24 hr Category Date Time Status Urinary Catheter Removal [RC] PER UNIT ROUTINE Care 04/13/20 13:51 Active UA W/MICROSCOPIC [URIN] Stat Lab 04/13/20 13:56 Ordered Labs: Laboratory Tests 04/13/20 Range/Units 14:55 Urine Color Red H (Yellow) Urine Appearance Clear (Clear) Urine pH 6.5 (5.0-8.0) Ur Specific [place] 1.010 (1.005-1.030) Urine Protein 2+ H (Negative) Urine Glucose (UA) Negative (Negative) Urine Ketones Negative (Negative) Urine Occult Blood 3+ H (Negative) Urine Nitrite Negative (Negative) Urine Bilirubin Negative (Negative) Urine Urobilinogen 0.2 (0.2-1.0) Ur Leukocyte Esterase 1+ H (Negative) Meds: Medications Discontinued Medications Generic Name Dose Route Start Last Admin Trade Name Freq PRN Reason Stop Dose Admin Levofloxacin 750 mg 04/13/20 13:52 04/13/20 14:03 Levaquin PO 04/13/20 13:53 750 mg ONETIME ONE Administration - Re-Assessments/Exams Free Text/Narrative Re-Assessment/Exam: 04/13/20 13:58 Patient presents to the ED for his Ordonez catheter issue. We will pull his Ordonez catheter, and try to get the patient to pee for us to evaluate for possible urinary tract infection. He will get 1 dose of 750 mg Levaquin while being in the ER, for his multiple manipulations that he did receive in the hospital, with subsequent insertion of Ordonez catheter for retention. The urine itself was blood-tinged, which could be due to irritation versus infection. Plan is to keep the patient in the ER for about an hour after Ordonez removal, give him some oral fluids to see if he can pee. Otherwise he will be discharged at his own recognizance, with strict recommendations to come back within 8 or 10 hours if he has not peed since then. Patient is okay with this plan at this time. He states he already has an appoint with Nadege Romero tomorrow for urological referral. 04/13/20 14:58 The RN does report that the patient has been able to have 2 small urination attempts, with no burning or associated UTI-like symptoms. We will collect urinalysis for dip analysis and likely discharge home. 04/13/20 15:21 RN informs me that he has been able to void around 250 cc of urine, that seems to be clearing with urination attempts. Initial UA does not seem overly impressive for infection. Departure - Departure Time of Disposition: 14:58 Disposition: Home, Self-Care 01 Condition: Good Clinical Impression: Problem with Ordonez catheter Qualifiers: Encounter type: initial encounter Qualified Code(s): T83.9XXA - Unspecified complication of genitourinary prosthetic device, implant and graft, initial encounter - Discharge Information *PRESCRIPTION DRUG MONITORING PROGRAM REVIEWED*: No *COPY OF PRESCRIPTION DRUG MONITORING REPORT IN PATIENT REYNA: No Instructions: Clean Intermittent Catheterization, Male Referrals: Carolyn Romero, LENS MATCHER [Primary Care Provider] - Forms: ED Department Discharge Additional Instructions: You were evaluated in the ER today regarding your Ordonez catheter issue. This was removed at this ER visit, and you were able to successfully void on your own. You were given 1 dose of oral Levaquin for repeat manipulation due to catheterization. This should be all you need for antibiotic coverage. Please keep your appointment with Nadege Romero, for urological referral, and/or management as deemed warranted. You may continue diet as tolerated, increase your oral fluid hydration over the next day or 2 to help keep your urinary status regular. Please return to the ER at any time if symptoms change or worsen. Sepsis Event Note (ED) - Evaluation Sepsis Screening Result: No Definite Risk - Focused Exam Vital Signs: Vital Signs Temp Pulse Resp BP Pulse Ox 04/13/20 13:35 97.6 F 73 18 153/63 H 96 - My Orders Last 24 Hours: My Active Orders 04/13/20 13:51 Urinary Catheter Removal [RC] PER UNIT ROUTINE 04/13/20 13:56 UA W/MICROSCOPIC [URIN] Stat - Assessment/Plan Last 24 Hours: My Active Orders 04/13/20 13:51 Urinary Catheter Removal [RC] PER UNIT ROUTINE 04/13/20 13:56 UA W/MICROSCOPIC [URIN] Stat
== END 2020-04-13 15:40 | disposition home or self-care (01) ==
LOC: JD.ED 13:16
DX: T83.038A Leakage of other urinary catheter, initial encounter (principal); E78.00 Pure hypercholesterolemia, unspecified; K21.9 Gastro-esophageal reflux disease without esophagitis; N40.1 Benign prostatic hyperplasia with lower urinary tract symptoms; R33.8 Other retention of urine; E66.9 Obesity, unspecified; F17.210 Nicotine dependence, cigarettes, uncomplicated; Z79.82 Long term (current) use of aspirin; Z79.899 Other long term (current) drug therapy
CPT/HCPCS: 81001; 99283; A9270

== ENCOUNTER 2020-05-26 10:15 | Day surgery (SDC) | payer MEDICARE, BC ==
[~2020-05-26 10:15] MED LIST: Lactated Ringers 1,000 ML IV SCH; Lidocaine 1%/Sod Bicarbonate in NS 8.4% 1 ML Syringe IDERM PRN; Sodium Chloride 0.9% 10 ML Syringe FLUSH PRN
[2020-05-26] MEDS ORDERED: Propofol 200 MG/20 ML SDV ONE (11:14)
--- NOTE | 2020-05-26 11:42 | PCM.PREANE ---
Preanesthetic Assessment - Procedure Proposed Procedure: Diagnostic EGD - Anesthesia/Transfusion/Family Hx Anesthesia History: Prior Anesthesia Without Reaction Family History of Anesthesia Reaction: No Transfusion History: Prior Transfusion Without Reaction - Review of Systems General: No Symptoms Pulmonary: Other (COVID in March on home O2 now back to RA 95-97%. Sleep Apnea with CPAP use. Former smoker 1 ppd for 15 years. ) Cardiovascular: No Symptoms Gastrointestinal: Other (GERD, Gastric Ulcer wtih bleeding/anemia. ) Neurological: Pre-Existing Deficit (Chronic Back pain for many years, steriod injections for management. ) Other: Reports: None (Obesity BMI 40) - Physical Assessment NPO Status Date: 05/25/20 NPO Status Time: 21:00 Height: 1.7 m Weight: 115 kg ASA Class: 3 Mental Status: Alert & Oriented x3 Airway Class: Mallampati = 2 Dentition: Reports: Normal Dentition Thyro-Mental Finger Breadths: 2 Mouth Opening Finger Breadths: 3 ROM/Head Extension: Full Lungs: Clear to Auscultation, Normal Respiratory Effort Cardiovascular: Regular Rate, Regular Rhythm - Allergies Allergies/Adverse Reactions: Allergies Allergy/AdvReac Type Severity Reaction Status Date / Time NSAIDS (Non-Steroidal Allergy Bleeding Verified 05/25/20 15:03 Anti-Inflamma - Acknowledgements Anesthesia Type Planned: MAC Pt an Appropriate Candidate for the Planned Anesthesia: Yes Alternatives and Risks of Anesthesia Discussed w Pt/Guardian: Yes Pt/Guardian Understands and Agrees with Anesthesia Plan: Yes PreAnesthesia Questionnaire - Past Health History Medical/Surgical History: Denies Medical/Surgical History HEENT History: Reports: Impaired Vision, Other (See Below) Other HEENT History: dry eyes Cardiovascular History: Reports: High Cholesterol Respiratory History: Reports: Sleep Apnea Gastrointestinal History: Reports: Chronic Constipation, GERD, GI Bleed, PUD Genitourinary History: Reports: BPH, Retention, Urinary, Urinary Incontinence 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 Musculoskeletal History: Reports: Amputation Other Musculoskeletal History: bone spur, back pain Neurological History: Reports: None Psychiatric History: Reports: None Endocrine/Metabolic History: Reports: Obesity/BMI 30+ Hematologic History: Reports: Anemia Immunologic History: Reports: None Oncologic (Cancer) History: Reports: Basal Cell Carcinoma Dermatologic History: Reports: Other (See Below) Other Dermatologic History: callus to foot, carbuncle/furbuncle, sebaceous cyst, skin lesion, basal cell carcinoma with excision - Infectious Disease History Infectious Disease History: Reports: Novel Coronavirus - Past Surgical History Head Surgeries/Procedures: Reports: None HEENT Surgical History: Reports: None Cardiovascular Surgical History: Reports: None Respiratory Surgical History: Reports: None GI Surgical History: Reports: EGD Female Surgical History: Reports: None Male Surgical History: Reports: None Neurological Surgical History: Reports: None Musculoskeletal Surgical History: Reports: Other (See Below) Other Musculoskeletal Surgeries/Procedures:: foot surgery, right knee surgery Oncologic Surgical History: Reports: None - SUBSTANCE USE Tobacco Use Status *Q: Former Tobacco User Recreational Drug Use History: No - HOME MEDS Home Medications: Home Meds Omeprazole 40 mg PO Q24H #30 capsule. 04/06/20 [Rx] Alfuzosin HCl [Alfuzosin HCl ER] 10 mg PO DAILY 04/08/20 [History] Finasteride [Proscar] 5 mg PO DAILY 04/08/20 [History] Simvastatin 20 mg PO DAILY 04/08/20 [History] Multivitamin 1 tab PO DAILY 05/25/20 [History] Vit C/E/Zn/Coppr/Lutein/Zeaxan [Preservision Areds 2 Softgel] 1 cap PO DAILY 05/25/20 [History] - CURRENT (IN HOUSE) MEDS Current Meds: Current Medications Lactated Ringer's (Ringers, Lactated) 1,000 mls @ 125 mls/hr IV ASDIRECTED ROSITA Stop: 05/26/20 23:00 Lidocaine/Sodium Bicarbonate (Buffered Lidocaine 1% In Ns 8.4%) 0.25 ml IDERM ONETIME PRN PRN Reason: Prior to IV Start Stop: 05/26/20 18:00 Sodium Chloride (Saline Flush) 10 ml FLUSH ASDIRECTED PRN PRN Reason: Keep Vein Open Stop: 05/26/20 18:00 Discontinued Medications Propofol (Diprivan 20 Ml) Confirm Administered Dose 200 mg .ROUTE .STK-MED ONE Stop: 05/26/20 11:15
[2020-05-26] MEDS ORDERED: Ketamine 500 mg/10 ML MDV ONE (11:54)
[2020-05-26] MEDS ORDERED: fentaNYL 100 MCG/2 ML SDV ONE (11:55)
[2020-05-26] MEDS ORDERED: Lidocaine 1% 4 ML ONE (11:55)
--- NOTE | 2020-05-26 12:29 | PCM.PRNOTE ---
- Free Text/Narrative Note: Date: May 26, 2020 Procedure: Diagnostic upper endoscopy Endoscopist: Boris Damico MD Findings: Healed ulcer at the cardia with some scarring at the base. A biopsy of the site was obtained with cold forceps. The remainder of the stomach and esophagus appeared normal. Detailed report: The patient was taken to the endoscopy suite and placed in left lateral decubitus position. A timeout was performed, and monitored anesthesia care initiated. A bite-block was placed. The endoscope was inserted into the mouth and advanced all the way to the pylorus. The pylorus and gastric antrum appeared normal. On retroflexion within the stomach, the site of prior noted gastric ulcer was obvious due to some scarring, but the ulcer appeared relatively well-healed. A biopsy of the central portion of the scar was obtained using cold forceps. No other abnormalities within the stomach were noted, and the Z-line at the gastroesophageal junction appeared normal. No esophageal pathology was noted on withdrawal of the scope, air was suctioned from the stomach and esophagus as the scope was withdrawn completely.
--- NOTE | 2020-05-26 12:34 | PCM48HPAN ---
Post Anesthesia Note - EVALUATION WITHIN 48HRS OF ANESTHETIC Vital Signs in Normal Range: Yes Patient Participated in Evaluation: Yes Respiratory Function Stable: Yes Airway Patent: Yes Cardiovascular Function Stable: Yes Hydration Status Stable: Yes Pain Control Satisfactory: Yes Nausea and Vomiting Control Satisfactory: Yes Mental Status Recovered: Yes Vital Signs: Last Vital Signs Temp 36.7 C 05/26/20 10:18 Pulse 56 L 05/26/20 10:18 Resp 16 05/26/20 10:18 BP 149/66 H 05/26/20 10:18 Pulse Ox 97 05/26/20 10:18
== END 2020-05-26 13:09 | disposition home or self-care (01) ==
LOC: JD.SDS 10:15
PROVIDERS: ATTEND Surgery
DX: K29.50 Unspecified chronic gastritis without bleeding (principal); K22.11 Ulcer of esophagus with bleeding; K25.9 Gastric ulcer, unspecified as acute or chronic, without hemorrhage or perforation; D64.9 Anemia, unspecified; G47.33 Obstructive sleep apnea (adult) (pediatric); E78.00 Pure hypercholesterolemia, unspecified; K21.9 Gastro-esophageal reflux disease without esophagitis; N40.0 Benign prostatic hyperplasia without lower urinary tract symptoms; E66.9 Obesity, unspecified; Z79.899 Other long term (current) drug therapy; Z68.41 Body mass index [BMI] 40.0-44.9, adult; Z88.8 Allergy status to other drugs, medicaments and biological substances; Z87.891 Personal history of nicotine dependence
CPT/HCPCS: 43239; J2001; J2704; J3010; J7120; 00731; 88305; 88342

== ENCOUNTER 2021-06-18 10:25 | Emergency (ER) | payer MEDICARE, BC, OTHER ==
[2021-06-18] MEDS ORDERED: Benzonatate 100 MG Cap PO ONE (11:23)
--- NOTE | 2021-06-18 11:25 | EDM.PDOC ---
ED HPI GENERAL MEDICAL PROBLEM - General Chief Complaint: Respiratory Problem Stated Complaint: CONGESTION Time Seen by Provider: 06/18/21 11:04 Source of Information: Reports: Patient History Limitations: Reports: No Limitations - History of Present Illness INITIAL COMMENTS - FREE TEXT/NARRATIVE: 75-year-old male presents the emergency department today with complaints of flulike symptoms. Patient states symptoms started 5 days ago. He states that initially developed runny nose and sinus congestion which then progressed into chest congestion, cough, sore throat, headache and fatigue. Denies any chills, fever, nausea, vomiting or diarrhea. States he has not been able to sleep much the past few nights due to the postnasal drip causing him to have coughing spells. States he did have his Covid vaccines as well as his booster. Also had his flu shot this season. He denies a smoking history. His primary care provider is Carolyn Romero. - Related Data Allergies Allergy/AdvReac Type Severity Reaction Status Date / Time NSAIDS (Non-Steroidal Allergy Bleeding Verified 06/18/21 10:54 Anti-Inflamma Home Meds: Home Meds Omeprazole 40 mg PO Q24H #30 capsule. 04/06/20 [Rx] Alfuzosin HCl [Alfuzosin HCl ER] 10 mg PO DAILY 04/08/20 [History] Finasteride [Proscar] 5 mg PO DAILY 04/08/20 [History] Simvastatin 20 mg PO DAILY 04/08/20 [History] Multivitamin 1 tab PO DAILY 05/25/20 [History] Vit C/E/Zn/Coppr/Lutein/Zeaxan [Preservision Areds 2 Softgel] 1 cap PO DAILY 05/25/20 [History] Benzonatate [Tessalon Perles] 100 mg PO TID PRN #30 cap 06/18/21 [Rx] Past Medical History - Past Health History Medical/Surgical History: Denies Medical/Surgical History HEENT History: Reports: Impaired Vision, Other (See Below) Other HEENT History: dry eyes Cardiovascular History: Reports: High Cholesterol Respiratory History: Reports: Sleep Apnea Gastrointestinal History: Reports: Chronic Constipation, GERD, GI Bleed, PUD Genitourinary History: Reports: BPH, Retention, Urinary, Urinary Incontinence 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: None Musculoskeletal History: Reports: Amputation Other Musculoskeletal History: bone spur, back pain Neurological History: Reports: None Psychiatric History: Reports: None Endocrine/Metabolic History: Reports: Obesity/BMI 30+ Hematologic History: Reports: Anemia Immunologic History: Reports: None Oncologic (Cancer) History: Reports: Basal Cell Carcinoma Dermatologic History: Reports: Other (See Below) Other Dermatologic History: callus to foot, carbuncle/furbuncle, sebaceous cyst, skin lesion, basal cell carcinoma with excision - Infectious Disease History Infectious Disease History: Reports: Novel Coronavirus - Past Surgical History Head Surgeries/Procedures: Reports: None HEENT Surgical History: Reports: None Cardiovascular Surgical History: Reports: None Respiratory Surgical History: Reports: None GI Surgical History: Reports: EGD Male Surgical History: Reports: None Neurological Surgical History: Reports: None Musculoskeletal Surgical History: Reports: Other (See Below) Other Musculoskeletal Surgeries/Procedures:: foot surgery, right knee surgery Oncologic Surgical History: Reports: None Social & Family History - Family History Family Medical History: No Pertinent Family History HEENT: Reports: None Cardiac: Reports: None Respiratory: Reports: None GI: Reports: None : Reports: None OBGYN: Reports: None Musculoskeletal: Reports: None Neurological: Reports: None Psychiatric: Reports: None Endocrine/Metabolic: Reports: None Hematologic: Reports: None Immunologic: Reports: None Oncologic: Reports: None - Tobacco Use Tobacco Use Status *Q: Never Tobacco User - Caffeine Use Caffeine Use: Reports: Coffee - Recreational Drug Use Recreational Drug Use: No - Living Situation & Occupation Living situation: Reports: Occupation: Retired ED ROS GENERAL - Review of Systems Review Of Systems: Comprehensive ROS is negative, except as noted in HPI. ED EXAM, GENERAL - Physical Exam Exam: See Below Exam Limited By: No Limitations General Appearance: Alert, WD/WN, No Apparent Distress Eye Exam: Bilateral Eye: PERRL Ears: Normal External Exam, Hearing Grossly Normal Nose: Normal Inspection Throat/Mouth: Normal Inspection, Normal Lips, Normal Oropharynx, Normal Voice, No Airway Compromise Head: Atraumatic, Normocephalic Neck: Normal Inspection, Supple. No: Lymphadenopathy (L), Lymphadenopathy (R) Respiratory/Chest: No Respiratory Distress, Lungs Clear, No Accessory Muscle Use, Chest Non-Tender, Decreased Breath Sounds Cardiovascular: Normal Peripheral Pulses, Regular Rate, Rhythm, No Edema, No Murmur Peripheral Pulses: 2+: Radial (L), Radial (R) GI/Abdominal: Normal Bowel Sounds, Soft, Non-Tender, No Distention (Male) Exam: Deferred Rectal (Males) Exam: Deferred Back Exam: Normal Inspection Extremities: Normal Inspection Neurological: Alert, Oriented, Normal Cognition Psychiatric: Normal Affect, Normal Mood Skin Exam: Warm, Dry, Intact, Normal Color, No Rash Lymphatic: No Adenopathy Course - Vital Signs Text/Narrative:: As stated above, patient presents with flulike symptoms that started approximately 5 days ago. Physical exam is essentially unremarkable however her lung sounds are diminished in the bases bilaterally. ED vital signs reveal a temp of 98.2, pulse of 74, respiratory rate of 20, blood pressure 140/74, pulse ox 96% on room air. Patient has been swabbed for Covid and influenza. Will also obtain a portable chest x-ray. Last Recorded V/S: Last Vital Signs Temp 98.2 F 06/18/21 10:48 Pulse 74 06/18/21 10:48 Resp 20 06/18/21 10:48 BP 140/74 06/18/21 10:48 Pulse Ox 96 06/18/21 10:48 - Orders/Labs/Meds Orders: Active Orders 24 hr Category Date Time Status Chest 1V Frontal [CR] Stat Exams 06/18/21 10:57 Taken Isolation [COMM] Stat Oth 06/18/21 10:57 Ordered Labs: Laboratory Tests 06/18/21 Range/Units 10:55 Influenza Type A RNA Negative (NEGATIVE) Influenza Type B RNA Negative (NEGATIVE) SARS-CoV-2 RNA (MATT) Negative (NEGATIVE) Meds: Medications Discontinued Medications Generic Name Dose Route Start Last Admin Trade Name Jose PRN Reason Stop Dose Admin Benzonatate 100 mg 06/18/21 11:23 06/18/21 11:31 Benzonatate 100 Mg Cap PO 06/18/21 11:24 100 mg ONETIME ONE Administration - Re-Assessments/Exams Free Text/Narrative Re-Assessment/Exam: 06/18/21 12:31 No acute is appreciated on portable chest x-ray. Formal radiologist report is pending. Patient likely has viral upper respiratory infection. States that the Tessalon Perle he received for the cough has helped significantly. He has been given strict return precautions should he develop shortness of breath or worsening symptoms to return to the ER. Recommend he follow-up with his primary care provider in 10 days time if he is not feeling better. We will send a prescription to his pharmacy for Tessalon Perles for the cough. Departure - Departure Time of Disposition: 12:37 Disposition: Home, Self-Care 01 Condition: Good Clinical Impression: Viral URI with cough - Discharge Information Prescriptions: Benzonatate [Tessalon Perles] 100 mg PO TID PRN #30 cap PRN Reason: Cough Instructions: Viral Respiratory Infection, [id number] Referrals: Carolyn Romero, COAL WASHER TENDER [Primary Care Provider] - Forms: ED Department Discharge Additional Instructions: You were seen in the emergency department today with flulike symptoms that started approximately 5 days ago. Chest x-ray was completed which was unremarkable. Also tested for Covid and influenza and these were negative. You likely have a viral upper aspiratory infection with a cough. As discussed, this is viral in origin and cannot be treated with antibiotics. I have sent prescription to your pharmacy for medication called Tessalon Perles for your cough. You may take 1-2 tabs 3 times daily as needed. Be sure to take 1 dose before going to bed to help and get a restful sleep. Drink plenty of fluids and get plenty of rest. May take Tylenol 650 mg every 4 hours as needed for fever or body aches. Should your symptoms worsen or you develop shortness of breath, recommend you return to the emergency department for reevaluation. If you are not better in 10 days time, recommend follow-up with your primary care provider for reevaluation. Sepsis Event Note (ED) - Focused Exam Vital Signs: Vital Signs Temp Pulse Resp BP Pulse Ox 06/18/21 10:48 98.2 F 74 20 140/74 96
[2021-06-18 12:16] LABS: CORONAVIRUS COVID-19 NAA NEGATIVE (NEGATIVE)
--- NOTE | 2021-06-18 12:37 | CR ---
Chest: Frontal view of the chest is obtained. Comparison: No prior chest imaging is available. Mild atelectasis is seen within the left lung base. Minimal atelectasis is noted within the right lung base. Lungs otherwise are clear. Heart size and mediastinum are within normal limits. Bony structures show nothing acute for the patient's age. Impression: 1. Mild bibasilar atelectasis. 2. Nothing acute is otherwise seen on frontal chest x-ray. Diagnostic code #2
== END 2021-06-18 13:06 | disposition home or self-care (01) ==
LOC: JD.ED 10:25
DX: J06.9 Acute upper respiratory infection, unspecified (principal); E78.00 Pure hypercholesterolemia, unspecified; E66.9 Obesity, unspecified; N40.0 Benign prostatic hyperplasia without lower urinary tract symptoms; Z20.822 Contact with and (suspected) exposure to COVID-19; Z88.8 Allergy status to other drugs, medicaments and biological substances; Z79.899 Other long term (current) drug therapy; Z68.38 Body mass index [BMI] 38.0-38.9, adult
CPT/HCPCS: 0240U; 71045; 99283; A9270